=== PATIENT | male | born 1945 | race Caucasian/White ===

== ENCOUNTER 2017-04-01 10:26 | Outpatient (RCR) | payer MEDICARE, OTHER, SELFPAY ==
[2017-04-01 10:51] LABS: Prothrombin Time Fingerstick 27.2 SEC (11.9-14.4)
== END 2017-04-01 10:45 | disposition home or self-care (01) ==
LOC: LAB 10:26
PROVIDERS: Family Provider Family Medicine; PCP Family Medicine; Visit Provider Internal Medicine Cardiovascular Disease
DX: I48.0 Paroxysmal atrial fibrillation (principal); Z79.899 Other long term (current) drug therapy
CPT/HCPCS: 36416; 85610

== ENCOUNTER 2017-04-30 10:30 | Outpatient (RCR) | payer MEDICARE, OTHER, SELFPAY | END 2017-04-30 11:00 | disposition home or self-care (01) | LOC: LAB 10:30 | PROVIDERS: Family Provider Family Medicine; PCP Family Medicine; Visit Provider Internal Medicine Cardiovascular Disease | DX: I48.0 Paroxysmal atrial fibrillation (principal); Z79.899 Other long term (current) drug therapy | CPT/HCPCS: 36416; 85610 ==

== ENCOUNTER 2017-05-28 09:33 | Outpatient (RCR) | payer MEDICARE, OTHER, SELFPAY ==
[2017-05-28 09:46] LABS: Prothrombin Time Fingerstick 26.2 SEC (11.9-14.4)
== END 2017-05-28 10:00 | disposition home or self-care (01) ==
LOC: LAB 09:33
PROVIDERS: Family Provider Family Medicine; PCP Family Medicine; Visit Provider Internal Medicine Cardiovascular Disease
DX: I48.0 Paroxysmal atrial fibrillation (principal); Z79.899 Other long term (current) drug therapy
CPT/HCPCS: 36416; 85610

== ENCOUNTER 2017-06-18 10:02 | Outpatient (RCR) | payer MEDICARE, OTHER, SELFPAY ==
[2017-06-18 10:21] LABS: Prothrombin Time Fingerstick 30.8 SEC (11.9-14.4)
== END 2017-06-18 11:00 | disposition home or self-care (01) ==
LOC: LAB 10:02
PROVIDERS: Family Provider Family Medicine; PCP Family Medicine; Visit Provider Internal Medicine Cardiovascular Disease
DX: I48.0 Paroxysmal atrial fibrillation (principal); Z79.899 Other long term (current) drug therapy
CPT/HCPCS: 36416; 85610

== ENCOUNTER 2017-07-25 09:34 | Outpatient (RCR) | payer MEDICARE, OTHER, SELFPAY ==
[2017-07-25 09:51] LABS: Prothrombin Time Fingerstick 40.1 SEC (11.9-14.4)
== END 2017-07-25 10:00 | disposition home or self-care (01) ==
LOC: LAB 09:34
PROVIDERS: Family Provider Family Medicine; PCP Family Medicine; Visit Provider Internal Medicine Cardiovascular Disease
DX: I48.0 Paroxysmal atrial fibrillation (principal); Z79.899 Other long term (current) drug therapy
CPT/HCPCS: 36416; 85610

== ENCOUNTER 2017-08-08 13:49 | Outpatient (RCR) | payer MEDICARE, OTHER, SELFPAY ==
--- NOTE | 2017-08-08 13:49 | DT_ITS ---
This patient was seen during an EMR downtime August 05, 2017 - August 12, 2017. This patient may have a combination of paper and electronic documentation or all paper documentation. All documentation is viewable within the e-chart portion of [email or web address] for each patient visit.
[2017-08-11 20:06] LABS: Prothrombin Time Fingerstick 30.5 SEC (11.9-14.4)
== END 2017-08-08 14:00 | disposition home or self-care (01) ==
LOC: LAB 13:49
PROVIDERS: Family Provider Family Medicine; PCP Family Medicine; Visit Provider Internal Medicine Cardiovascular Disease
DX: I48.0 Paroxysmal atrial fibrillation (principal); Z79.899 Other long term (current) drug therapy
CPT/HCPCS: 36416; 85610

== ENCOUNTER 2017-09-05 10:17 | Outpatient (RCR) | payer MEDICARE, OTHER, SELFPAY ==
[2017-09-05 10:31] LABS: Prothrombin Time Fingerstick 27.6 SEC (11.9-14.4)
== END 2017-09-05 11:00 | disposition home or self-care (01) ==
LOC: LAB 10:17
PROVIDERS: Family Provider Family Medicine; PCP Family Medicine; Visit Provider Internal Medicine Cardiovascular Disease
DX: I48.0 Paroxysmal atrial fibrillation (principal); Z79.899 Other long term (current) drug therapy
CPT/HCPCS: 36416; 85610

== ENCOUNTER 2017-10-07 10:53 | Outpatient (RCR) | payer MEDICARE, OTHER, SELFPAY ==
[2017-10-07 11:06] LABS: Prothrombin Time Fingerstick 28.1 SEC (11.9-14.4)
== END 2017-10-07 12:00 | disposition home or self-care (01) ==
LOC: LAB 10:53
PROVIDERS: Family Provider Family Medicine; PCP Family Medicine; Visit Provider Internal Medicine Cardiovascular Disease
DX: I48.0 Paroxysmal atrial fibrillation (principal); Z79.899 Other long term (current) drug therapy
CPT/HCPCS: 36416; 85610

== ENCOUNTER 2017-11-08 12:20 | Outpatient (RCR) | payer MEDICARE, OTHER, SELFPAY ==
[2017-11-08 12:37] LABS: Prothrombin Time Fingerstick 34.9 SEC (11.9-14.4)
== END 2017-11-08 14:00 | disposition home or self-care (01) ==
LOC: LAB 12:20
PROVIDERS: Family Provider Family Medicine; PCP Family Medicine; Visit Provider Internal Medicine Cardiovascular Disease
DX: I48.0 Paroxysmal atrial fibrillation (principal); Z79.899 Other long term (current) drug therapy
CPT/HCPCS: 36416; 85610

== ENCOUNTER 2017-12-09 09:21 | Outpatient (RCR) | payer MEDICARE, OTHER, SELFPAY ==
[2017-12-09 09:36] LABS: Prothrombin Time Fingerstick 34.8 SEC (11.9-14.4)
== END 2017-12-09 11:00 | disposition home or self-care (01) ==
LOC: LAB 09:21
PROVIDERS: Family Provider Family Medicine; PCP Family Medicine; Referring Provider Internal Medicine Cardiovascular Disease; Visit Provider Internal Medicine Cardiovascular Disease
DX: I48.0 Paroxysmal atrial fibrillation (principal); R09.89 Other specified symptoms and signs involving the circulatory and respiratory systems; I35.0 Nonrheumatic aortic (valve) stenosis; I35.9 Nonrheumatic aortic valve disorder, unspecified; I10 Essential (primary) hypertension; E78.5 Hyperlipidemia, unspecified; Z79.01 Long term (current) use of anticoagulants
CPT/HCPCS: 36416; 85610

== ENCOUNTER 2018-01-06 08:38 | Outpatient (RCR) | payer MEDICARE, OTHER, SELFPAY ==
[2018-01-06 08:51] LABS: Prothrombin Time Fingerstick 34.2 SEC (11.9-14.4)
== END 2018-01-31 10:29 | disposition home or self-care (01) ==
LOC: LAB 08:38
PROVIDERS: Family Provider Family Medicine; PCP Family Medicine; Referring Provider Internal Medicine Cardiovascular Disease; Visit Provider Internal Medicine Cardiovascular Disease
DX: I48.0 Paroxysmal atrial fibrillation (principal); R09.89 Other specified symptoms and signs involving the circulatory and respiratory systems; I35.0 Nonrheumatic aortic (valve) stenosis; I35.9 Nonrheumatic aortic valve disorder, unspecified; I10 Essential (primary) hypertension; E78.5 Hyperlipidemia, unspecified; Z79.01 Long term (current) use of anticoagulants
CPT/HCPCS: 36416; 85610

== ENCOUNTER 2018-02-04 09:02 | Outpatient (RCR) | payer MEDICARE, OTHER, SELFPAY ==
[2018-02-04 09:15] LABS: Prothrombin Time Fingerstick 33.9 SEC (11.9-14.4)
== END 2018-02-04 09:30 | disposition home or self-care (01) ==
LOC: LAB 09:02
PROVIDERS: Family Provider Family Medicine; PCP Family Medicine; Referring Provider Internal Medicine Cardiovascular Disease; Visit Provider Internal Medicine Cardiovascular Disease
DX: I48.0 Paroxysmal atrial fibrillation (principal); R09.89 Other specified symptoms and signs involving the circulatory and respiratory systems; I35.0 Nonrheumatic aortic (valve) stenosis; I35.9 Nonrheumatic aortic valve disorder, unspecified; I10 Essential (primary) hypertension; E78.5 Hyperlipidemia, unspecified; Z79.01 Long term (current) use of anticoagulants
CPT/HCPCS: 36416; 85610

== ENCOUNTER 2018-03-14 11:23 | Outpatient (RCR) | payer MEDICARE, OTHER, SELFPAY ==
[2018-03-14 11:45] LABS: Prothrombin Time Fingerstick 25.5 SEC (11.9-14.4)
== END 2018-03-14 12:23 | disposition home or self-care (01) ==
LOC: LAB 11:23
PROVIDERS: Family Provider Family Medicine; PCP Family Medicine; Referring Provider Internal Medicine Cardiovascular Disease; Visit Provider Internal Medicine Cardiovascular Disease
DX: I48.0 Paroxysmal atrial fibrillation (principal); R09.89 Other specified symptoms and signs involving the circulatory and respiratory systems; I35.0 Nonrheumatic aortic (valve) stenosis; I35.9 Nonrheumatic aortic valve disorder, unspecified; I10 Essential (primary) hypertension; E78.5 Hyperlipidemia, unspecified; Z79.01 Long term (current) use of anticoagulants
CPT/HCPCS: 36416; 85610

== ENCOUNTER 2018-04-28 13:02 | Outpatient (RCR) | payer MEDICARE, OTHER, SELFPAY ==
[2018-04-18 10:31] LABS: Prothrombin Time Fingerstick 43.6 SEC (11.9-14.4)
[2018-04-18 11:03] LABS: International Normalized Ratio 3.6
[2018-04-18 11:19] LABS: Prothrombin Time (Protime)PT. 35.8 SECONDS (11.7-14.9)
[2018-04-28 13:16] LABS: Prothrombin Time Fingerstick 28.7 SEC (11.9-14.4)
== END 2018-05-01 13:55 | disposition home or self-care (01) ==
LOC: LAB 13:02
PROVIDERS: Family Provider Family Medicine; PCP Family Medicine; Referring Provider Internal Medicine Cardiovascular Disease; Visit Provider Internal Medicine Cardiovascular Disease
DX: I48.0 Paroxysmal atrial fibrillation (principal); R09.89 Other specified symptoms and signs involving the circulatory and respiratory systems; I35.0 Nonrheumatic aortic (valve) stenosis; I35.9 Nonrheumatic aortic valve disorder, unspecified; I10 Essential (primary) hypertension; E78.5 Hyperlipidemia, unspecified; Z79.01 Long term (current) use of anticoagulants
CPT/HCPCS: 36415; 36416; 85610

== ENCOUNTER 2018-05-21 10:47 | Outpatient (RCR) | payer MEDICARE, OTHER, SELFPAY ==
[2018-05-21 11:00] LABS: Prothrombin Time Fingerstick 26.5 SEC (11.9-14.4)
== END 2018-05-21 11:00 | disposition home or self-care (01) ==
LOC: LAB 10:47
PROVIDERS: Family Provider Family Medicine; PCP Family Medicine; Referring Provider Internal Medicine Cardiovascular Disease; Visit Provider Internal Medicine Cardiovascular Disease
DX: I48.0 Paroxysmal atrial fibrillation (principal); R09.89 Other specified symptoms and signs involving the circulatory and respiratory systems; I35.0 Nonrheumatic aortic (valve) stenosis; I35.9 Nonrheumatic aortic valve disorder, unspecified; I10 Essential (primary) hypertension; E78.5 Hyperlipidemia, unspecified; Z79.01 Long term (current) use of anticoagulants
CPT/HCPCS: 36416; 85610

== ENCOUNTER 2018-06-27 12:17 | Outpatient (RCR) | payer MEDICARE, OTHER, SELFPAY ==
[2018-06-27 11:20] VITALS: BMI 28.2
[2018-06-27 12:36] LABS: Prothrombin Time Fingerstick 41.3 SEC (11.9-14.4)
[2018-06-27 13:05] LABS: Prothrombin Time (Protime)PT. 37.8 SECONDS (11.7-14.9)
[2018-06-27 13:11] LABS: International Normalized Ratio 3.8
== END 2018-07-01 16:00 | disposition home or self-care (01) ==
LOC: LAB 12:17
PROVIDERS: Family Provider Family Medicine; PCP Family Medicine; Referring Provider Internal Medicine Cardiovascular Disease; Visit Provider Internal Medicine Cardiovascular Disease
DX: I48.0 Paroxysmal atrial fibrillation (principal); R09.89 Other specified symptoms and signs involving the circulatory and respiratory systems; I35.0 Nonrheumatic aortic (valve) stenosis; I35.9 Nonrheumatic aortic valve disorder, unspecified; I10 Essential (primary) hypertension; E78.5 Hyperlipidemia, unspecified; Z79.01 Long term (current) use of anticoagulants
CPT/HCPCS: 36415; 36416; 85610

== ENCOUNTER 2018-07-18 12:18 | Outpatient (RCR) | payer MEDICARE, OTHER, SELFPAY ==
[2018-07-04 09:25] LABS: Prothrombin Time Fingerstick 21.2 SEC (11.9-14.4)
[2018-07-18 12:56] LABS: Prothrombin Time Fingerstick 28.2 SEC (11.9-14.4)
== END 2018-07-18 13:00 | disposition home or self-care (01) ==
LOC: LAB 12:18
PROVIDERS: Family Provider Family Medicine; PCP Family Medicine; Referring Provider Internal Medicine Cardiovascular Disease; Visit Provider Internal Medicine Cardiovascular Disease
DX: I48.0 Paroxysmal atrial fibrillation (principal); R09.89 Other specified symptoms and signs involving the circulatory and respiratory systems; I35.0 Nonrheumatic aortic (valve) stenosis; I35.9 Nonrheumatic aortic valve disorder, unspecified; I10 Essential (primary) hypertension; E78.5 Hyperlipidemia, unspecified; Z79.01 Long term (current) use of anticoagulants
CPT/HCPCS: 36416; 85610

== ENCOUNTER 2018-08-27 12:35 | Outpatient (RCR) | payer MEDICARE, OTHER, SELFPAY ==
[2018-08-11 10:41] LABS: Prothrombin Time Fingerstick 35.7 SEC (11.9-14.4)
[2018-08-27 12:50] LABS: Prothrombin Time Fingerstick 33.1 SEC (11.9-14.4)
== END 2018-08-27 13:00 | disposition home or self-care (01) ==
LOC: LAB 12:35
PROVIDERS: Family Provider Family Medicine; PCP Family Medicine; Referring Provider Internal Medicine Cardiovascular Disease; Visit Provider Internal Medicine Cardiovascular Disease
DX: I48.0 Paroxysmal atrial fibrillation (principal); R09.89 Other specified symptoms and signs involving the circulatory and respiratory systems; I35.0 Nonrheumatic aortic (valve) stenosis; I35.9 Nonrheumatic aortic valve disorder, unspecified; I10 Essential (primary) hypertension; E78.5 Hyperlipidemia, unspecified; Z79.01 Long term (current) use of anticoagulants
CPT/HCPCS: 36416; 85610

== ENCOUNTER 2018-09-29 09:04 | Outpatient (RCR) | payer MEDICARE, OTHER, SELFPAY ==
[2018-09-29 09:21] LABS: Prothrombin Time Fingerstick 27.8 SEC (11.9-14.4)
== END 2018-09-29 10:00 | disposition home or self-care (01) ==
LOC: LAB 09:04
PROVIDERS: Family Provider Family Medicine; PCP Family Medicine; Referring Provider Internal Medicine Cardiovascular Disease; Visit Provider Internal Medicine Cardiovascular Disease
DX: I48.0 Paroxysmal atrial fibrillation (principal); R09.89 Other specified symptoms and signs involving the circulatory and respiratory systems; I35.0 Nonrheumatic aortic (valve) stenosis; I35.9 Nonrheumatic aortic valve disorder, unspecified; I10 Essential (primary) hypertension; E78.5 Hyperlipidemia, unspecified; Z79.01 Long term (current) use of anticoagulants
CPT/HCPCS: 36416; 85610

== ENCOUNTER 2018-10-27 09:06 | Outpatient (RCR) | payer MEDICARE, OTHER, SELFPAY ==
[2018-10-28 11:18] LABS: Prothrombin Time Fingerstick 27.1 SEC (11.9-14.4)
== END 2018-10-27 10:00 | disposition home or self-care (01) ==
LOC: LAB 09:06
PROVIDERS: Family Provider Family Medicine; PCP Family Medicine; Referring Provider Internal Medicine Cardiovascular Disease; Visit Provider Internal Medicine Cardiovascular Disease
DX: I35.0 Nonrheumatic aortic (valve) stenosis (principal); R09.89 Other specified symptoms and signs involving the circulatory and respiratory systems; I35.9 Nonrheumatic aortic valve disorder, unspecified; I10 Essential (primary) hypertension; E78.5 Hyperlipidemia, unspecified; I48.0 Paroxysmal atrial fibrillation; Z79.01 Long term (current) use of anticoagulants
CPT/HCPCS: 36416; 85610

== ENCOUNTER 2018-12-02 11:51 | Outpatient (RCR) | payer MEDICARE, OTHER, SELFPAY ==
[2018-12-02 15:35] LABS: Prothrombin Time Fingerstick 33.6 SEC (11.9-14.4)
== END 2018-12-02 18:00 | disposition home or self-care (01) ==
LOC: LAB 11:51
PROVIDERS: Family Provider Family Medicine; PCP Family Medicine; Referring Provider Internal Medicine Cardiovascular Disease; Visit Provider Internal Medicine Cardiovascular Disease
DX: I48.0 Paroxysmal atrial fibrillation (principal); Z79.01 Long term (current) use of anticoagulants
CPT/HCPCS: 36416; 85610

== ENCOUNTER 2019-01-06 12:43 | Outpatient (RCR) | payer MEDICARE, OTHER, SELFPAY ==
[2019-01-06 14:21] LABS: Prothrombin Time Fingerstick 26.1 SEC (11.9-14.4)
== END 2019-01-06 18:00 | disposition home or self-care (01) ==
LOC: LAB 12:43
PROVIDERS: Family Provider Family Medicine; PCP Family Medicine; Referring Provider Internal Medicine Cardiovascular Disease; Visit Provider Internal Medicine Cardiovascular Disease
DX: I48.0 Paroxysmal atrial fibrillation (principal); Z79.01 Long term (current) use of anticoagulants
CPT/HCPCS: 36416; 85610

== ENCOUNTER 2019-02-12 11:52 | Outpatient (RCR) | payer MEDICARE, OTHER, SELFPAY ==
[2019-02-12 15:18] LABS: Prothrombin Time Fingerstick 27.5 SEC (11.9-14.4)
[2019-02-12 17:20] LABS: Prothrombin Time Fingerstick 27.5 SEC (11.9-14.4)
== END 2019-02-12 18:00 | disposition home or self-care (01) ==
LOC: LAB 11:52
PROVIDERS: Family Provider Family Medicine; PCP Family Medicine; Referring Provider Internal Medicine Cardiovascular Disease; Visit Provider Internal Medicine Cardiovascular Disease
DX: I48.0 Paroxysmal atrial fibrillation (principal); Z79.01 Long term (current) use of anticoagulants
CPT/HCPCS: 36416; 85610

== ENCOUNTER 2019-03-20 12:35 | Outpatient (RCR) | payer MEDICARE, OTHER, SELFPAY ==
[2019-03-20 12:50] LABS: Prothrombin Time Fingerstick 30.9 SEC (11.9-14.4)
== END 2019-03-20 18:00 | disposition home or self-care (01) ==
LOC: LAB 12:35
PROVIDERS: Family Provider Family Medicine; PCP Family Medicine; Referring Provider Internal Medicine Cardiovascular Disease; Visit Provider Internal Medicine Cardiovascular Disease
DX: I48.0 Paroxysmal atrial fibrillation (principal); Z79.01 Long term (current) use of anticoagulants
CPT/HCPCS: 36416; 85610

== ENCOUNTER 2019-04-23 12:17 | Outpatient (RCR) | payer MEDICARE, SELFPAY ==
[2019-04-09 13:31] LABS: Prothrombin Time Fingerstick 30.4 SEC (11.9-14.4)
[2019-04-23 12:25] LABS: Prothrombin Time Fingerstick 26.2 SEC (11.9-14.4)
== END 2019-04-23 18:00 | disposition home or self-care (01) ==
LOC: LAB 12:17
PROVIDERS: Family Provider Family Medicine; PCP Family Medicine; Referring Provider Internal Medicine Cardiovascular Disease; Visit Provider Internal Medicine Cardiovascular Disease
DX: I48.0 Paroxysmal atrial fibrillation (principal); Z79.01 Long term (current) use of anticoagulants
CPT/HCPCS: 36416; 85610

== ENCOUNTER 2019-05-25 11:25 | Outpatient (RCR) | payer MEDICARE, SELFPAY ==
[2019-05-25 12:00] LABS: Prothrombin Time Fingerstick 31.4 SEC (11.9-14.4)
== END 2019-05-25 18:00 | disposition home or self-care (01) ==
LOC: LAB 11:25
PROVIDERS: Family Provider Family Medicine; PCP Family Medicine; Referring Provider Internal Medicine Cardiovascular Disease; Visit Provider Internal Medicine Cardiovascular Disease
DX: I48.0 Paroxysmal atrial fibrillation (principal); Z79.01 Long term (current) use of anticoagulants
CPT/HCPCS: 36416; 85610

== ENCOUNTER 2019-06-19 13:03 | Outpatient (RCR) | payer MEDICARE, SELFPAY ==
[2019-06-19 13:10] LABS: Prothrombin Time Fingerstick 37.6 SEC (11.9-14.4)
== END 2019-07-02 18:00 | disposition home or self-care (01) ==
LOC: LAB 13:03
PROVIDERS: Family Provider Family Medicine; PCP Family Medicine; Referring Provider Internal Medicine Cardiovascular Disease; Visit Provider Internal Medicine Cardiovascular Disease
DX: I48.0 Paroxysmal atrial fibrillation (principal); Z79.01 Long term (current) use of anticoagulants
CPT/HCPCS: 36416; 85610

== ENCOUNTER 2019-07-06 10:38 | Outpatient (RCR) | payer MEDICARE, SELFPAY ==
[2019-07-06 10:46] LABS: Prothrombin Time Fingerstick 26.9 SEC (11.9-14.4)
== END 2019-07-06 18:00 | disposition home or self-care (01) ==
LOC: LAB 10:38
PROVIDERS: Family Provider Family Medicine; PCP Family Medicine; Referring Provider Internal Medicine Cardiovascular Disease; Visit Provider Internal Medicine Cardiovascular Disease
DX: I48.0 Paroxysmal atrial fibrillation (principal); Z79.01 Long term (current) use of anticoagulants
CPT/HCPCS: 36416; 85610

== ENCOUNTER 2019-08-03 09:30 | Outpatient (RCR) | payer MEDICARE, SELFPAY ==
[2019-08-03 09:45] LABS: Prothrombin Time Fingerstick 26.5 SEC (11.9-14.4)
== END 2019-08-03 18:00 | disposition home or self-care (01) ==
LOC: LAB 09:30
PROVIDERS: Family Provider Family Medicine; PCP Family Medicine; Referring Provider Internal Medicine Cardiovascular Disease; Visit Provider Internal Medicine Cardiovascular Disease
DX: I48.0 Paroxysmal atrial fibrillation (principal); Z79.01 Long term (current) use of anticoagulants
CPT/HCPCS: 36416; 85610

== ENCOUNTER 2019-09-07 10:40 | Outpatient (RCR) | payer MEDICARE, SELFPAY ==
[2019-09-07 10:56] LABS: Prothrombin Time Fingerstick 29.2 SEC (11.9-14.4)
== END 2019-09-07 18:00 | disposition home or self-care (01) ==
LOC: LAB 10:40
PROVIDERS: Family Provider Family Medicine; PCP Family Medicine; Referring Provider Internal Medicine Cardiovascular Disease; Visit Provider Internal Medicine Cardiovascular Disease
DX: I48.0 Paroxysmal atrial fibrillation (principal); Z79.01 Long term (current) use of anticoagulants
CPT/HCPCS: 36416; 85610

== ENCOUNTER 2019-10-05 10:23 | Outpatient (RCR) | payer MEDICARE, SELFPAY | END 2019-11-02 18:00 | disposition home or self-care (01) | LOC: LAB 10:23 | PROVIDERS: Family Provider Family Medicine; PCP Family Medicine; Referring Provider Internal Medicine Cardiovascular Disease; Visit Provider Internal Medicine Cardiovascular Disease | DX: I48.0 Paroxysmal atrial fibrillation (principal); Z79.01 Long term (current) use of anticoagulants | CPT/HCPCS: 36416; 85610 ==

== ENCOUNTER 2019-11-05 10:40 | Outpatient (RCR) | payer MEDICARE, SELFPAY ==
[2019-11-05 10:51] LABS: Prothrombin Time Fingerstick 32.7 SEC (11.9-14.4)
== END 2019-11-05 18:00 | disposition home or self-care (01) ==
LOC: LAB 10:40
PROVIDERS: Family Provider Family Medicine; PCP Family Medicine; Referring Provider Internal Medicine Cardiovascular Disease; Visit Provider Internal Medicine Cardiovascular Disease
DX: I48.0 Paroxysmal atrial fibrillation (principal); Z79.01 Long term (current) use of anticoagulants
CPT/HCPCS: 36416; 85610

== ENCOUNTER 2019-12-07 10:34 | Outpatient (RCR) | payer MEDICARE, SELFPAY ==
[2019-12-07 14:05] LABS: Prothrombin Time Fingerstick 31.5 SEC (11.9-14.4)
== END 2019-12-07 18:00 | disposition home or self-care (01) ==
LOC: LAB 10:34
PROVIDERS: Family Provider Family Medicine; PCP Family Medicine; Referring Provider Internal Medicine Cardiovascular Disease; Visit Provider Internal Medicine Cardiovascular Disease
DX: I48.0 Paroxysmal atrial fibrillation (principal); Z79.01 Long term (current) use of anticoagulants
CPT/HCPCS: 36416; 85610

== ENCOUNTER 2020-01-11 10:57 | Outpatient (RCR) | payer MEDICARE, SELFPAY ==
[2020-01-12 10:46] LABS: Prothrombin Time Fingerstick 27.3 SEC (11.9-14.4)
== END 2020-01-11 18:00 | disposition home or self-care (01) ==
LOC: LAB 10:57
PROVIDERS: Family Provider Family Medicine; PCP Family Medicine; Referring Provider Internal Medicine Cardiovascular Disease; Visit Provider Internal Medicine Cardiovascular Disease
DX: I48.0 Paroxysmal atrial fibrillation (principal); Z79.01 Long term (current) use of anticoagulants
CPT/HCPCS: 36416; 85610

== ENCOUNTER 2020-02-04 11:05 | Outpatient (RCR) | payer MEDICARE, SELFPAY ==
[2020-02-07 15:55] LABS: Prothrombin Time Fingerstick 32.2 SEC (11.9-14.4)
== END 2020-02-04 18:00 | disposition home or self-care (01) ==
LOC: LAB 11:05
PROVIDERS: Family Provider Family Medicine; PCP Family Medicine; Referring Provider Internal Medicine Cardiovascular Disease; Visit Provider Internal Medicine Cardiovascular Disease
DX: I48.0 Paroxysmal atrial fibrillation (principal); Z79.01 Long term (current) use of anticoagulants
CPT/HCPCS: 36416; 85610

== ENCOUNTER 2020-03-07 11:56 | Outpatient (RCR) | payer MEDICARE, SELFPAY ==
[2020-03-07 12:11] LABS: Prothrombin Time Fingerstick 29.5 SEC (11.9-14.4)
== END 2020-03-07 18:00 | disposition home or self-care (01) ==
LOC: LAB 11:56
PROVIDERS: Family Provider Family Medicine; PCP Family Medicine; Referring Provider Internal Medicine Cardiovascular Disease; Visit Provider Internal Medicine Cardiovascular Disease
DX: I48.0 Paroxysmal atrial fibrillation (principal); Z79.01 Long term (current) use of anticoagulants
CPT/HCPCS: 36416; 85610

== ENCOUNTER 2020-04-06 09:47 | Outpatient (RCR) | payer MEDICARE, SELFPAY ==
[2020-04-06 10:11] LABS: Prothrombin Time Fingerstick 21.4 SEC (11.9-14.4)
[2020-04-11 10:06] LABS: Prothrombin Time Fingerstick 30.2 SEC (11.9-14.4)
== END 2020-04-06 18:00 ==
LOC: LAB 09:47
PROVIDERS: Family Provider Family Medicine; PCP Family Medicine; Referring Provider Internal Medicine Cardiovascular Disease; Visit Provider Internal Medicine Cardiovascular Disease
DX: I48.0 Paroxysmal atrial fibrillation (principal); Z79.01 Long term (current) use of anticoagulants
CPT/HCPCS: 36416; 85610

== ENCOUNTER 2020-05-02 12:41 | Outpatient (RCR) | payer MEDICARE, SELFPAY ==
[2020-05-02 12:50] LABS: Prothrombin Time Fingerstick 28.8 SEC (11.9-14.4)
== END 2020-05-02 18:00 | disposition home or self-care (01) ==
LOC: LAB 12:41
PROVIDERS: Family Provider Family Medicine; PCP Family Medicine; Referring Provider Internal Medicine Cardiovascular Disease; Visit Provider Internal Medicine Cardiovascular Disease
DX: I48.0 Paroxysmal atrial fibrillation (principal); Z79.01 Long term (current) use of anticoagulants
CPT/HCPCS: 36416; 85610

== ENCOUNTER 2020-06-06 10:48 | Outpatient (RCR) | payer MEDICARE, SELFPAY ==
[2020-06-10 16:11] LABS: INR Fingerstick 2.4; Prothrombin Time Fingerstick 27.2 SEC (11.9-14.4)
== END 2020-06-06 18:00 | disposition home or self-care (01) ==
LOC: LAB 10:48
PROVIDERS: Family Provider Family Medicine; PCP Family Medicine; Referring Provider Internal Medicine Cardiovascular Disease; Visit Provider Internal Medicine Cardiovascular Disease
DX: I48.0 Paroxysmal atrial fibrillation (principal); Z79.01 Long term (current) use of anticoagulants
CPT/HCPCS: 36416; 85610

== ENCOUNTER 2020-07-04 10:10 | Outpatient (RCR) | payer MEDICARE, SELFPAY ==
[2020-07-04 10:31] LABS: INR Fingerstick 2.4; Prothrombin Time Fingerstick 26.7 SEC (11.9-14.4)
== END 2020-07-04 18:00 | disposition home or self-care (01) ==
LOC: LAB 10:10
PROVIDERS: Family Provider Family Medicine; PCP Family Medicine; Referring Provider Internal Medicine Cardiovascular Disease; Visit Provider Internal Medicine Cardiovascular Disease
DX: I48.0 Paroxysmal atrial fibrillation (principal); Z79.01 Long term (current) use of anticoagulants
CPT/HCPCS: 36416; 85610

== ENCOUNTER 2020-08-08 07:30 | Outpatient (RCR) | payer MEDICARE, SELFPAY ==
[2020-08-08 07:41] LABS: INR Fingerstick 2.4; Prothrombin Time Fingerstick 26.8 SEC (11.9-14.4)
== END 2020-08-08 18:00 | disposition home or self-care (01) ==
LOC: LAB 07:30
PROVIDERS: Family Provider Family Medicine; PCP Family Medicine; Referring Provider Internal Medicine Cardiovascular Disease; Visit Provider Internal Medicine Cardiovascular Disease
DX: I48.0 Paroxysmal atrial fibrillation (principal); Z79.01 Long term (current) use of anticoagulants
CPT/HCPCS: 36416; 85610

== ENCOUNTER 2020-09-12 07:30 | Outpatient (RCR) | payer MEDICARE, SELFPAY ==
[2020-09-12 07:46] LABS: INR Fingerstick 2.9; Prothrombin Time Fingerstick 32.2 SEC (11.9-14.4)
== END 2020-09-12 18:00 | disposition home or self-care (01) ==
LOC: LAB 07:30
PROVIDERS: Family Provider Family Medicine; PCP Family Medicine; Referring Provider Internal Medicine Cardiovascular Disease; Visit Provider Internal Medicine Cardiovascular Disease
DX: I48.0 Paroxysmal atrial fibrillation (principal); Z79.01 Long term (current) use of anticoagulants
CPT/HCPCS: 36416; 85610

== ENCOUNTER 2020-10-18 08:48 | Outpatient (RCR) | payer MEDICARE, SELFPAY ==
[2020-10-18 13:26] LABS: INR Fingerstick 2.4; Prothrombin Time Fingerstick 27.1 SEC (11.9-14.4)
== END 2020-10-18 18:00 | disposition home or self-care (01) ==
LOC: LAB 08:48
PROVIDERS: Family Provider Family Medicine; PCP Family Medicine; Referring Provider Internal Medicine Cardiovascular Disease; Visit Provider Internal Medicine Cardiovascular Disease
DX: I48.0 Paroxysmal atrial fibrillation (principal); Z79.01 Long term (current) use of anticoagulants
CPT/HCPCS: 36416; 85610

== ENCOUNTER 2020-11-11 10:15 | Outpatient (RCR) | payer MEDICARE, SELFPAY ==
[2020-11-01 23:20] VITALS: BMI 28.2
[2020-11-11 10:26] LABS: INR Fingerstick 2.9; Prothrombin Time Fingerstick 32.4 SEC (11.9-14.4)
== END 2020-11-11 18:00 | disposition home or self-care (01) ==
LOC: LAB 10:15
PROVIDERS: Family Provider Family Medicine; PCP Family Medicine; Referring Provider Internal Medicine Cardiovascular Disease; Visit Provider Internal Medicine Cardiovascular Disease
DX: I48.0 Paroxysmal atrial fibrillation (principal); Z79.01 Long term (current) use of anticoagulants
CPT/HCPCS: 36416; 85610

== ENCOUNTER → 2020-11-18 14:24 | Outpatient (CLI) | payer MEDICARE, SELFPAY ==
--- NOTE | 2020-11-18 14:26 | CT_ITS ---
STUDY: CT BRAIN WITH AND WITHOUT CONTRAST REASON FOR EXAM: Male, 75 years old. 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 The examination was performed with intravenous administration of IV 100mL Isovue-370. Individualized dose optimization techniques were used for this CT. COMPARISON: None. FINDINGS: Normal soft tissue structures. Normal calvarium. There is mild cerebral atrophy with widening of the extra-axial spaces and ventricular dilatation. There are areas of decreased attenuation within the white matter tracts of the supratentorial brain, consistent with microvascular disease changes. There are small punctate calcifications of the basal ganglia which are seen in the aging brain as a normal variant. Normal brainstem. Normal cerebellum. There is no intracranial hemorrhage. There are no findings of an acute ischemic infarction. Atherosclerotic calcification of the cavernous portions of the internal carotid arteries bilaterally. Normal visualized paranasal sinuses. CT/Brain/Head W/WO Contrast IMPRESSION: Chronic involutional changes of the brain. Electronically Signed: Kyrie Guevara MD at 15:20 EDT , Service support ,
--- NOTE | 2020-11-18 14:27 | CT_ITS ---
STUDY: CT ORBITS WITH CONTRAST REASON FOR EXAM: Male, 75 years old. RT cranial PALSY RADIATION DOSAGE (If Supplied By Facility): CTDIvol = ( 29.38 ) mGy, DLP = ( 305.04 ) mGycm TECHNIQUE: The patient was scanned in a multi detector CT scanner. Transaxial imaging was performed following the intravenous administration of IV 100mL Isovue-370. Sagittal and coronal images were reconstructed. Individualized dose optimization techniques were used for this CT. COMPARISON: None. FINDINGS: Normal globes. Normal intraconal spaces. Normal optic nerve sheath complex. Normal bilateral extraocular muscles. Normal lacrimal glands. Normal bilateral medial and inferior orbital wharton. Normal bilateral maxillary bones. Normal bilateral frontozygomatic arches. Normal bilateral zygomatic temporal arches. Opacification of the right frontal sinus. Partial opacification of the right ethmoid sinus. Normal maxillary sinuses. Mild degree of mucosal thickening along the posterior aspect of the right sphenoid sinus. Normal soft tissue structures. There is no demonstrated abnormal enhancement. CT/Orb Sella Post Fossa Ear W/CON IMPRESSION: Mucosal thickening of the posterior aspect of the right sphenoid sinus as well as partial opacification of the right ethmoid sinus. Opacification of the right frontal sinus. Electronically Signed: Kyrie Guevara MD at 15:22 EDT , Service support ,
[2020-11-18 14:56] LABS: CREATININE FINGERSTICK 0.7 mg/dL (0.70-1.30); EGFR FINGERSTICK > 60.0000 mL/min (>60)
== END ==
PROVIDERS: PCP Family Medicine; Visit Provider Ophthalmology
DX: H49.01 Third [oculomotor] nerve palsy, right eye (principal)
CPT/HCPCS: 70470; 70481; Q9967

== ENCOUNTER 2020-12-19 08:31 | Outpatient (RCR) | payer MEDICARE, SELFPAY ==
[2020-12-01 20:38] VITALS: BMI 28.2
[2020-12-19 11:36] LABS: INR Fingerstick 2.9; Prothrombin Time Fingerstick 32.2 SEC (11.9-14.4)
== END 2021-01-01 03:47 | disposition home or self-care (01) ==
LOC: LAB 08:31
PROVIDERS: Family Provider Family Medicine; PCP Family Medicine; Referring Provider Internal Medicine Cardiovascular Disease; Visit Provider Internal Medicine Cardiovascular Disease
DX: I48.0 Paroxysmal atrial fibrillation (principal); Z79.01 Long term (current) use of anticoagulants
CPT/HCPCS: 36416; 85610

== ENCOUNTER 2021-01-18 10:22 | Outpatient (RCR) | payer MEDICARE, SELFPAY ==
[2021-01-01 03:47] VITALS: BMI 28.2
[2021-01-18 10:30] LABS: INR Fingerstick 2.4; Prothrombin Time Fingerstick 27.1 SEC (11.9-14.4)
== END 2021-01-31 18:00 | disposition home or self-care (01) ==
LOC: LAB 10:22
PROVIDERS: Family Provider Family Medicine; PCP Family Medicine; Referring Provider Internal Medicine Cardiovascular Disease; Visit Provider Internal Medicine Cardiovascular Disease
DX: I48.0 Paroxysmal atrial fibrillation (principal); Z79.01 Long term (current) use of anticoagulants
CPT/HCPCS: 36416; 85610

== ENCOUNTER 2021-02-16 08:44 | Outpatient (RCR) | payer MEDICARE, SELFPAY ==
[2021-02-01 02:25] VITALS: BMI 28.2
[2021-02-16 09:05] LABS: INR Fingerstick 2.7; Prothrombin Time Fingerstick 30.1 SEC (11.9-14.4)
== END 2021-03-04 18:00 | disposition home or self-care (01) ==
LOC: LAB 08:44
PROVIDERS: Family Provider Family Medicine; PCP Family Medicine; Referring Provider Internal Medicine Cardiovascular Disease; Visit Provider Internal Medicine Cardiovascular Disease
DX: I48.0 Paroxysmal atrial fibrillation (principal); Z79.01 Long term (current) use of anticoagulants
CPT/HCPCS: 36416; 85610

== ENCOUNTER 2021-03-21 10:58 | Outpatient (RCR) | payer MEDICARE, SELFPAY ==
[2021-03-05 04:13] VITALS: BMI 28.2
[2021-03-21 11:10] LABS: INR Fingerstick 2.4; Prothrombin Time Fingerstick 27.9 SEC (11.9-14.4)
== END 2021-04-03 18:00 | disposition home or self-care (01) ==
LOC: LAB 10:58
PROVIDERS: Family Provider Family Medicine; PCP Family Medicine; Referring Provider Internal Medicine Cardiovascular Disease; Visit Provider Internal Medicine Cardiovascular Disease
DX: I48.0 Paroxysmal atrial fibrillation (principal); Z79.01 Long term (current) use of anticoagulants
CPT/HCPCS: 36416; 85610

== ENCOUNTER 2021-04-19 09:29 | Outpatient (RCR) | payer MEDICARE, SELFPAY ==
[2021-04-03 23:05] VITALS: BMI 28.2
[2021-04-19 09:41] LABS: INR Fingerstick 2.1; Prothrombin Time Fingerstick 24.6 SEC (11.9-14.4)
== END 2021-04-19 18:00 | disposition home or self-care (01) ==
LOC: LAB 09:29
PROVIDERS: Family Provider Family Medicine; PCP Family Medicine; Referring Provider Internal Medicine Cardiovascular Disease; Visit Provider Internal Medicine Cardiovascular Disease
DX: I48.0 Paroxysmal atrial fibrillation (principal); Z79.01 Long term (current) use of anticoagulants
CPT/HCPCS: 36416; 85610

== ENCOUNTER 2021-05-23 11:22 | Outpatient (RCR) | payer MEDICARE, SELFPAY ==
[2021-05-02 10:29] VITALS: BMI 28.2
[2021-05-23 11:41] LABS: INR Fingerstick 1.9; Prothrombin Time Fingerstick 22.4 SEC (11.7-14.9)
== END 2021-06-01 18:00 | disposition home or self-care (01) ==
LOC: LAB 11:22
PROVIDERS: Family Provider Family Medicine; PCP Family Medicine; Referring Provider Internal Medicine Cardiovascular Disease; Visit Provider Internal Medicine Cardiovascular Disease
DX: I48.0 Paroxysmal atrial fibrillation (principal); Z79.01 Long term (current) use of anticoagulants
CPT/HCPCS: 36416; 85610

== ENCOUNTER 2021-06-20 09:03 | Outpatient (RCR) | payer MEDICARE, SELFPAY ==
[2021-06-02 02:24] VITALS: BMI 28.2
[2021-06-20 09:15] LABS: INR Fingerstick 1.7; Prothrombin Time Fingerstick 20.2 SEC (11.7-14.9)
== END 2021-06-20 18:00 | disposition home or self-care (01) ==
LOC: LAB 09:03
PROVIDERS: Family Provider Family Medicine; PCP Family Medicine; Referring Provider Internal Medicine Cardiovascular Disease; Visit Provider Internal Medicine Cardiovascular Disease
DX: I48.0 Paroxysmal atrial fibrillation (principal); Z79.01 Long term (current) use of anticoagulants
CPT/HCPCS: 36416; 85610

== ENCOUNTER 2021-07-18 10:50 | Outpatient (RCR) | payer MEDICARE, SELFPAY ==
[2021-07-02 03:22] VITALS: BMI 28.2
[2021-07-06 07:36] LABS: INR Fingerstick 1.7
[2021-07-18 10:56] LABS: INR Fingerstick 2.4; Prothrombin Time Fingerstick 28.1 SEC (11.7-14.9)
== END 2021-07-18 18:00 | disposition home or self-care (01) ==
LOC: LAB 10:50
PROVIDERS: Family Provider Family Medicine; PCP Family Medicine; Referring Provider Internal Medicine Cardiovascular Disease; Visit Provider Internal Medicine Cardiovascular Disease
DX: I48.0 Paroxysmal atrial fibrillation (principal); Z79.01 Long term (current) use of anticoagulants
CPT/HCPCS: 36416; 85610

== ENCOUNTER → 2021-07-25 | Outpatient (CLI) | payer MEDICARE, SELFPAY ==
--- NOTE | 2021-07-25 09:49 | CDU_ITS ---
Reason For Study: Carotid bruit, left Rt. Velocities/BP Lt. Velocities/BP Prox CCA 77.3/6.9 cm/sec. Prox CCA 78.6/13.4 cm/sec. Mid CCA 70.8/10.8 cm/sec. Mid CCA 77.3/16 cm/sec. Dist CCA 61.7/10.8 cm/sec. Dist CCA 65.6/14.7 cm/sec. Prox ICA 48.6/13.4 cm/sec. Prox ICA 473.2/143.8 cm/sec. Mid ICA 60.4/13.4 cm/sec. Mid ICA 240.1/23.6 cm/sec. Dist ICA 51.2/13.4 cm/sec. Dist ICA 79/21.2 cm/sec. Rt. ICA/CCA = 0.85. Lt. ICA/CCA = 6.12. Prox ECA 94.3/9.5 cm/sec. Prox ECA 103.4/5.6 cm/sec. Rt. Vert. 57.8/17.3 cm/sec. Lt. Vert. 66.7/18.8 cm/sec. Right Extracranial There is homogeneous, smooth atherosclerotic plaque noted in the right common carotid artery. There is heterogeneous, irregular atherosclerotic plaque noted in the right internal carotid artery. There is intimal thickening but no significant atherosclerotic plaque noted in the right external carotid artery. Antegrade flow is noted in the right vertebral artery. There is heterogeneous, irregular atherosclerotic plaque noted in the right bulb. Left Extracranial There is heterogeneous, irregular atherosclerotic plaque noted in the left common carotid artery. There is heterogeneous, irregular atherosclerotic plaque noted in the left internal carotid artery. There is intimal thickening but no significant atherosclerotic plaque noted in the left external carotid artery. Antegrade flow is noted in the left vertebral artery. There is heterogeneous, irregular atherosclerotic plaque noted in the left bulb. Procedure Carotid Duplex 67812. This is a Carotid Duplex examination using B-mode, color flow and specral Doppler. Preliminary report to Renetta ADRIAN. Exam performed in department. VL/Carotid Duplex Ultrasound Interpretation Summary Irregular calcific plaque with shadowing at the distal right common carotid art osiel and proximal right internal carotid artery with less than 50% stenosis of the internal carot id artery Less than 50% stenosis right external carotid artery Irregular calcific plaque with shadowing at the proximal left internal carotid artery and carotid bulb with near occlusion of the internal carotid artery Less than 50% stenosis left external carotid artery Patent and antegrade vertebral arteries bilaterally Notable progression of left internal carotid artery occlusive disease from the previous examination of December 28, 2016 Ordering Physician: Ashely Donis Referring Physician: Jef Henao Performed By: Sherlyn Peterson RVT
== END | disposition home or self-care (01) ==
PROVIDERS: PCP Family Medicine; Visit Provider Nurse Practitioner Gerontology
DX: R09.89 Other specified symptoms and signs involving the circulatory and respiratory systems (principal)
CPT/HCPCS: 93880

== ENCOUNTER → 2021-08-02 | Outpatient (CLI) | payer MEDICARE, SELFPAY ==
--- NOTE | 2021-08-02 10:00 | CT_ITS ---
STUDY: CTA NECK WITH CONTRAST REASON FOR EXAM: Male, 76 years old. Left carotid stenosis. RADIATION DOSAGE (If Supplied By Facility): CTDIvol = ( 23.49 ) mGy, DLP = ( 637.85 ) mGycm TECHNIQUE: CT angiography with multi-detector data acquisition was performed from the aortic arch to the skull base following intravenous administration of IV 100mL Isovue-370. MIP images were reconstructed from the axial data set. Post-processing of the angiographic images was performed, with multiplanar reformation and 3D reconstruction. Individualized dose optimization techniques were used for this CT. COMPARISON: None. FINDINGS: AORTIC ARCH: There is atherosclerotic calcific plaque formation of the aortic arch and great vessels arising from the aortic arch, without a hemodynamically significant stenosis. There is a normal origin of the brachiocephalic, left common carotid, and left subclavian arteries. Atherosclerotic calcific plaque seen at the origin of the left subclavian artery as well as the origin of the right brachiocephalic artery. RIGHT CAROTID ARTERIES: Normal right common carotid artery (CCA). Normal right common carotid bulb. There is extensive atherosclerotic plaque formation of the origin of the right internal carotid artery with an estimated stenosis of greater than 70%. Normal visualized cervical portion of the right internal carotid artery. Normal origin of the right external carotid artery (ECA). LEFT CAROTID ARTERIES: There is atherosclerotic plaque formation of the common carotid artery, but without a hemodynamically significant stenosis. Normal left common carotid bulb. There is severe atherosclerotic plaque formation of the origin of the left internal carotid artery with a near complete occlusion. Normal visualized cervical portion of the left internal carotid artery. Normal origin of the left external carotid artery (ECA). VERTEBRAL ARTERIES: Normal bilateral vertebral arteries. CT/CTA Neck W/WO Contrast IMPRESSION: There is bilateral high-grade stenosis at the origins of the left and right internal carotid arteries more prominent on the left side. Electronically Signed: Kyrie Guevara MD at 10:45 EDT ,
[2021-08-02 10:10] LABS: CREATININE FINGERSTICK < 0.9 mg/dL (0.70-1.30); EGFR FINGERSTICK > 60.0000 mL/min (>60)
== END | disposition home or self-care (01) ==
LOC: CT 09:51
PROVIDERS: PCP Family Medicine; Visit Provider Physician Assistant
DX: I65.22 Occlusion and stenosis of left carotid artery (principal)
CPT/HCPCS: 70498; Q9967; A4216

== ENCOUNTER 2021-08-14 05:17 | Inpatient (IN) | payer MEDICARE, SELFPAY ==
[2021-08-08 16:00] LABS: Hemoglobin 13.2 g/dL (13.0-16.5); Mean Corp Hgb Conc 35.7 g/dL (32-36); Mean Corpuscular Hgb 30.6 pg (27.0-32.0); Mean Corpuscular Volume 85.6 fL (80-94); Mean Platelet Vol. 8.9 fl (6.2-12.0); Platelet Count 162 K/mm3 (150-450); RBC Distribution Width CV 11.8 % (11.6-14.6); RBC Distribution Width SD 36.8 fl (35.1-43.9); Red Blood Count 4.32 M/mm3 (4.6-6.2)
[2021-08-08 16:17] LABS: Anion Gap 8 (5-15); BUN 20 mg/dL (7-18); BUN/Creat Ratio 17.1 RATIO (10-20); Calcium,Total 9.5 mg/dL (8.5-10.1); Chloride 94 mmol/L (98-107); Creatinine, Serum 1.17 mg/dL (0.70-1.30); EST Glomerular Filtration Rate 65 mL/min (>60); Est Glom Filt Rate - Afr Amer 78 mL/min (>60); Glucose 253 mg/dL (74-106); Potassium 4.3 mmol/L (3.5-5.1); Sodium Level 129 mmol/L (136-145)
[2021-08-08 16:30] LABS: International Normalized Ratio 2.4; Prothrombin Time (Protime)PT. 26.2 SECONDS (11.7-14.9)
[2021-08-09 12:38] LABS: Hemoglobin A1c 6.7 % (3.8-5.6)
--- NOTE | 2021-08-10 13:12 | EKG12_ITS ---
Test Reason : Blood Pressure : / mmHG Vent. Rate : 067 BPM Atrial Rate : 067 BPM P-R Int : 212 ms QRS Dur : 108 ms QT Int : 402 ms P-R-T Axes : 078 065 065 degrees QTc Int : 424 ms Sinus rhythm with 1st degree A-V block Otherwise normal ECG Confirmed by SEAN ZEPEDA, ELEANOR ([id number]), acquisitions editor AIDAN FIORE ([id number]) on 08/14/2021 7:20:53 AM Referred By: Naren Espinoza Confirmed By:ELEANOR ESTRADA MD
--- NOTE | 2021-08-12 | PLAQ_PTH ---
PATIENT: SHEYLA JOSHUA LOC: MS3 U#:[id number] AGE/SX: 76/M [place] [facility] [place]: Dr. Naren Espinoza MD : 1945 BED: 1 DIS: 08/15/2021 SPEC #: [id number] RECD: 08/14/21 09:16 STATUS: ANGELA SOLORIO #: [id number] KRISTI: 08/12/21 00:[address]: Naren Espinoza DEPT: SURGICAL PATHOLOGY RECD BY: Jer Garcia ENTERED: 08/14/21 09:53 SP TYPE: PLAQUE OTHR DR: Dr. Jef Henao MD Tissues: PLAQUE Procedures: Decalcification bone/plaque Surgery Specimen Level III HEADER OPERATION: Carotid endarterectomy with patch angioplasty PRE-OP DIAGNOSIS: Stenosis of left carotid artery TISSUE SUBMITTED: Left carotid plaque MICROSCOPIC DIAGNOSIS Left carotid plaque, endarterectomy: Atherosclerotic tissue with focal calcifications (plaque). SJ:niraj 08/17/2021 GROSS DESCRIPTION Received in fixative is one container labeled with the patient's name and designated left carotid plaque. The specimen consists of a partially disrupted tubular piece of nguyen, indurated tissue measuring 3.8 cm in length and up to 1 cm in diameter. A detached piece of yellow, indurated tissue is also noted measuring 0.7 x 0.7 x 0.2 cm. The specimen cuts with gritty sensation. Cook Jelly sections are submitted in one cassette after decalcification. / YASMINE:nriaj 08/14/2021 TC:5 CPT: 27788, 72326
[2021-08-14] VITALS (22 sets, daily range): BP systolic 111–172; BP diastolic 41–87; PULSE 58–76; RESP 16–18; TEMP 36.2–37.5; O2SAT 94–99; BMI 27.5; BMI 28.0; BMI 28.1
--- NOTE | 2021-08-14 05:54 | PCM.HP.BLA ---
History and Physical Date of Admission: 08/14/21 Chief Complaint: carotid stenosis Tsa Screener Required: No Accompanied by: Daughter Is patient in pain?: No Allergies No Known Allergies Allergy (Verified 08/02/21 08:55) Medications flecainide 150 mg tablet 150 mg PO BID 90 Days #180 tab 06/14/17 [History Confirmed 08/08/21] metformin 1,000 mg tablet 1,000 mg PO BID 90 Days #180 tab 06/14/17 [History Confirmed 08/08/21] allopurinol 100 mg tablet 100 mg PO QDAY 06/18/17 [History Confirmed 08/08/21] amlodipine 10 mg tablet 10 mg PO QDAY 06/18/17 [History Confirmed 08/08/21] carvedilol 25 mg tablet 12.5 mg PO BID tab 06/18/17 [History Confirmed 08/08/21] polypodium leucotomos extract 240 mg capsule See Rx Instructions PO .COMPLEX 06/18/17 [History Confirmed 08/08/21] atorvastatin 80 mg tablet 40 mg PO QHS tab 06/27/18 [History Confirmed 08/08/21] vitamin B complex 1 tab PO DAILY 06/27/18 [History Confirmed 08/08/21] warfarin 2 mg tablet 2 mg PO .COMPLEX #180 tab 04/06/20 [Rx Confirmed 08/08/21] warfarin 5 mg tablet 5 mg PO QDAY #90 tab 10/17/20 [Rx Confirmed 08/08/21] warfarin 3 mg tablet 3 mg PO .COMPLEX #90 tab 12/26/20 [Rx Confirmed 08/08/21] cholecalciferol (vitamin D3) 25 mcg (1,000 unit) capsule 25 mcg PO DAILY 05/26/21 [History Confirmed 08/08/21] insulin glargine 100 unit/mL subcutaneous solution 22 unit SC QDAY ml 05/26/21 [History Confirmed 08/08/21] hydrochlorothiazide 25 mg tablet 25 mg PO DAILY 07/10/21 [History Confirmed 08/08/21] losartan 100 mg tablet 100 mg PO DAILY #90 tab 07/10/21 [Rx Confirmed 08/08/21] aspirin 81 mg tablet,delayed release 81 mg PO DAILY 08/08/21 [History Confirmed 08/08/21] [facility] Medical History (Updated 08/08/21 @ 15:[address] Naren Espinoza MD) Diabetes mellitus Essential (primary) hypertension HLD (hyperlipidemia) Left carotid bruit Non-rheumatic aortic stenosis Paroxysmal atrial fibrillation Surgical History History of tonsillectomy Family History Father CVA (cerebral vascular accident) Diabetes Mother Myocardial infarction CVA (cerebral vascular accident) Brother Myocardial infarction Diabetes Hypertension Brother Diabetes Hypertension Cardiac defibrillator in place Brother CAD (coronary artery disease) Brother CAD (coronary artery disease) cardiac stent Diabetes Afib Social History Smoking Status: Former smoker substance use type: does not use seatbelt use: always HPI HPI HPI: SHEYLA JOSHUA, is a 76 M who presents to the office today for ongoing discussion regarding extracranial carotid artery occlusive disease. I have recently seen this patient on August 02, 2021. On the same day the patient has CTA of the carotids suggesting high-grade stenosis bilateral internal carotids left more severe than the right. In detail I have reviewed with the patient today his carotid duplex and CT findings. Please refer to my documentation below August 02, 2021 STUDY: CTA NECK WITH CONTRAST REASON FOR EXAM: Male, 76 years old. Left carotid stenosis. RADIATION DOSAGE (If Supplied By Facility): CTDIvol = ( 23.49 ) mGy, DLP = ( 637.85 ) mGycm TECHNIQUE: CT angiography with multi-detector data acquisition was performed from the aortic arch to the skull base following intravenous administration of IV 100mL Isovue-370. MIP images were reconstructed from the axial data set. Post-processing of the angiographic images was performed, with multiplanar reformation and 3D reconstruction. Individualized dose optimization techniques were used for this CT. COMPARISON: None. FINDINGS: AORTIC ARCH: There is atherosclerotic calcific plaque formation of the aortic arch and great vessels arising from the aortic arch, without a hemodynamically significant stenosis. There is a normal origin of the brachiocephalic, left common carotid, and left subclavian arteries. Atherosclerotic calcific plaque seen at the origin of the left subclavian artery as well as the origin of the right brachiocephalic artery. RIGHT CAROTID ARTERIES: Normal right common carotid artery (CCA). Normal right common carotid bulb. There is extensive atherosclerotic plaque formation of the origin of the right internal carotid artery with an estimated stenosis of greater than 70%. Normal visualized cervical portion of the right internal carotid artery. Normal origin of the right external carotid artery (ECA). LEFT CAROTID ARTERIES: There is atherosclerotic plaque formation of the common carotid artery, but without a hemodynamically significant stenosis. Normal left common carotid bulb. There is severe atherosclerotic plaque formation of the origin of the left internal carotid artery with a near complete occlusion. Normal visualized cervical portion of the left internal carotid artery. Normal origin of the left external carotid artery (ECA). VERTEBRAL ARTERIES: Normal bilateral vertebral arteries. CT/CTA Neck W/WO Contrast IMPRESSION: There is bilateral high-grade stenosis at the origins of the left and right internal carotid arteries more prominent on the left side. Electronically Signed: Kyrie Guevara MD at 10:45 EDT , Intake Visit Reasons: critical carotid Chief Complaint: carotid stenosis Tsa Screener Required: No Is patient in pain?: No Allergies No Known Allergies Allergy (Verified 08/02/21 08:55) Medications flecainide 150 mg tablet 150 mg PO BID 90 Days #180 tab 06/14/17 [History Confirmed 08/02/21] metformin 1,000 mg tablet 1,000 mg PO BID 90 Days #180 tab 06/14/17 [History Confirmed 08/02/21] allopurinol 100 mg tablet 100 mg PO QDAY 06/18/17 [History Confirmed 08/02/21] amlodipine 10 mg tablet 10 mg PO QDAY 06/18/17 [History Confirmed 08/02/21] carvedilol 25 mg tablet 12.5 mg PO BID tab 06/18/17 [History Confirmed 08/02/21] polypodium leucotomos extract 240 mg capsule See Rx Instructions PO .COMPLEX 04/17/18 [History Confirmed 08/02/21] atorvastatin 80 mg tablet 40 mg PO QHS tab 06/27/18 [History Confirmed 08/02/21] vitamin B complex 1 tab PO DAILY 06/27/18 [History Confirmed 08/02/21] warfarin 2 mg tablet 2 mg PO .COMPLEX #180 tab 04/06/20 [Rx Confirmed 08/02/21] warfarin 5 mg tablet 5 mg PO QDAY #90 tab 10/17/20 [Rx Confirmed 08/02/21] warfarin 3 mg tablet 3 mg PO .COMPLEX #90 tab 12/26/20 [Rx Confirmed 08/02/21] cholecalciferol (vitamin D3) 25 mcg (1,000 unit) capsule 25 mcg PO DAILY 05/26/21 [History Confirmed 08/02/21] insulin glargine 100 unit/mL subcutaneous solution 22 unit SC QDAY ml 05/26/21 [History Confirmed 08/02/21] hydrochlorothiazide 25 mg tablet 25 mg PO DAILY 07/10/21 [History Confirmed 08/02/21] losartan 100 mg tablet 100 mg PO DAILY #90 tab 07/10/21 [Rx Confirmed 08/02/21] [facility] Medical History (Updated 08/02/21 @ 09:[address] Naren Espinoza MD) Diabetes mellitus Essential (primary) hypertension HLD (hyperlipidemia) Left carotid bruit Non-rheumatic aortic stenosis Paroxysmal atrial fibrillation Surgical History History of tonsillectomy Family History Father CVA (cerebral vascular accident) Diabetes Mother Myocardial infarction CVA (cerebral vascular accident) Brother Myocardial infarction Diabetes Hypertension Brother Diabetes Hypertension Cardiac defibrillator in place Brother CAD (coronary artery disease) Brother CAD (coronary artery disease) cardiac stent Diabetes Afib Social History Smoking Status: Former smoker substance use type: does not use seatbelt use: always HPI HPI HPI: SHEYLA JOSHUA, is a 76 M who presents to the office today for surgical consultation regarding abnormal carotid findings. The patient was seen by the [facility] Ashely Donis NP-C on May 26, 2021. Details: SHEYLA JOSHUA, is a 76 M who presents to the office today for a follow-up visit, and cardiac clearance for a colonoscopy. He has a history of aortic stenosis, hypertension, diabetes, hyperlipidemia, and paroxysmal atrial fibrillation with a cardioversion in January 2009. The patient was scheduled proceed with a colonoscopy at the [facility]. Patient has paroxysmal atrial fibrillation and was instructed that he could hold his Coumadin for 5 days precolonoscopy. He has a history of nonrheumatic aortic valvular stenosis. History of a left carotid bruit. On January 01, 2017 carotid duplex suggested less than 50% stenosis of the right internal carotid artery and 50 to 69% stenosis of the left internal carotid artery. Does have some dizziness particularly when getting up. He denies any previous history of myocardial infarction or stroke. There is a family history of multiple members who have had strokes. The patient's primary care physician is Dr. Jef Henao and his ergonomist is Dr. Barber Sofia and his [facility] physician is Dr. Estrella. The patient has been a long-term diabetic. Typical a.m. blood sugars at 9200. He thinks his previous hemoglobin A1c was 6.4. He has chronic atrial fibrillation and has been on Coumadin for multiple years. It is of note that he just recently had a colonoscopy done at the [facility]. He states that he made it through that procedure well out medical difficulty and that 4 polyps were removed at that time. We do have cardiology review and case recommendations are to proceed with surgical treatment. July 25, 2021 Reason For Study: Carotid bruit, left Rt. Velocities/BP Lt. Velocities/BP Prox CCA 77.3/6.9 cm/sec. Prox CCA 78.6/13.4 cm/sec. Mid CCA 70.8/10.8 cm/sec. Mid CCA 77.3/16 cm/sec. Dist CCA 61.7/10.8 cm/sec. Dist CCA 65.6/14.7 cm/sec. Prox ICA 48.6/13.4 cm/sec. Prox ICA 473.2/143.8 cm/sec. Mid ICA 60.4/13.4 cm/sec. Mid ICA 240.1/23.6 cm/sec. Dist ICA 51.2/13.4 cm/sec. Dist ICA 79/21.2 cm/sec. Rt. ICA/CCA = 0.85. Lt. ICA/CCA = 6.12. Prox ECA 94.3/9.5 cm/sec. Prox ECA 103.4/5.6 cm/sec. Rt. Vert. 57.8/17.3 cm/sec. Lt. Vert. 66.7/18.8 cm/sec. Right Extracranial There is homogeneous, smooth atherosclerotic plaque noted in the right common carotid artery. There is heterogeneous, irregular atherosclerotic plaque noted in the right internal carotid artery. There is intimal thickening but no significant atherosclerotic plaque noted in the right external carotid artery. Antegrade flow is noted in the right vertebral artery. There is heterogeneous, irregular atherosclerotic plaque noted in the right bulb. Left Extracranial There is heterogeneous, irregular atherosclerotic plaque noted in the left common carotid artery. There is heterogeneous, irregular atherosclerotic plaque noted in the left internal carotid artery. There is intimal thickening but no significant atherosclerotic plaque noted in the left external carotid artery. Antegrade flow is noted in the left vertebral artery. There is heterogeneous, irregular atherosclerotic plaque noted in the left bulb. Procedure Carotid Duplex 61857. This is a Carotid Duplex examination using B-mode, color flow and specral Doppler. Preliminary report to Renetta ADRIAN. Exam performed in department. VL/Carotid Duplex Ultrasound Interpretation Summary Irregular calcific plaque with shadowing at the distal right common carotid artery and proximal right internal carotid artery with less than 50% stenosis of the internal carotid artery Less than 50% stenosis right external carotid artery Irregular calcific plaque with shadowing at the proximal left internal carotid artery and carotid bulb with near occlusion of the internal carotid artery Less than 50% stenosis left external carotid artery Patent and antegrade vertebral arteries bilaterally Notable progression of left internal carotid artery occlusive disease from the previous examination of December 28, 2016 Ordering Physician: Ashely Donis Referring Physician: Jef Henao Performed By: Sherlyn Peterson RVT 07/25/21 [id number] Naren Espinoza MD ROS General General: Yes fatigue; No weight change, appetite, colon cancer, breast cancer or weakness HEENT HEENT: No difficulty swallowing, eye injury, eye surgery, swollen glands or hoarseness Endo Endocrine: Yes diabetes mellitus; No thyroid disease, thyroid cancer, Hair loss, heat intolerance or cold intolerance Skin Skin: No rash or changing moles Breast Breast: No left breast lump, right breast lump, nipple discharge, breast pain, abnormal mammogram, abnormal US or breast enlargement Musc Musculoskeletal: Yes arthritis and gout; No back problems, rheumatoid arthritis or joint pain Cardio Cardiovascular: Yes atrial fibrillation and high blood pressure; No murmur, pacemaker, heart disease, heart attack, heart stent, palpitations, shortness of breat with exertion or chest pain Psych Psychiatric: No depression, anxiety or hearing voices Resp Respiratory: No shortness of breath, No sleep apnea, No cough, No COPD, No asthma, No emphysema and No wheezing Gastro Gastrointestinal: No abdominal pain, No nausea or vomiting, No diarrhea, No constipation, No blood in stool, No acid reflux, Yes hemorrhoids, No ulcers, No gallbladder problem and No black,tarry stools Daniel Hematologic: Yes blood thinners, No blood disorders, No bleeding, No anemia and No blood clots Neuro Neurologic: No system reviewed and no additional complaints, except as documented, No as per HPI, No abnormal gait, No abnormal hearing, No abnormal movements, No abnormal speech, No behavioral changes, No burning sensations, No confusion, No convulsions, No disequilibrium, No dizziness, No localized weakness, No frequent falls, No headache(s), No lack of coordination, No loss of vision, No memory loss, Yes numbness, No other visual disturbances, No radicular pain, No restless legs, No sensory deficit, No syncope, Yes tingling, No tremor(s), No weakness and No other Exam Const General: cooperative, healthy appearing, comfortable and no acute distress Nutritional Appearance: average body habitus Orientation: awake [facility] Head: normal to inspection Eyes General: appearance normal, both eyes and all related structures Neck Other: Slightly diminished range of motion slightly more stiff and kyphotic. Carotids are easily palpable 2-3+. 2/6 carotid bruits bilaterally Chest Chest palpation & inspection: normal inspection of the chest Resp Effort & Inspection: normal respiratory effort Auscultation: clear to auscultation bilaterally Cardio Rate: regular rate Rhythm: regular rhythm Other: 2/6 systolic ejection murmur GI Palpation: soft and no hepatosplenomegaly Auscultation: normal bowel sounds Other: Not expansile or pulsatile Musc Cervical Spine: normal cervical lordosis Skin General: no rashes or lesions noted Neuro General: patient alert, patient awake and patient oriented x3 Extrem General: no calf tenderness Other: 2+ bilateral extremity pitting edema Psych Appearance: grossly normal Assessment and Plan Assessment and Plan (1) Stenosis of left carotid artery: Status: Acute (2) Paroxysmal atrial fibrillation: Status: Chronic (3) long term (current) use of anticoagulants: Status: Chronic (4) Diabetes mellitus: Status: Chronic Qualifiers: Diabetes mellitus type: type 2 Orders: Orders: CTA Neck W/WO Contrast Today I65.22 Plan - Dr. Naren Espinoza MD: 76-year-old gentleman. He has had significant progression of left carotid stenosis since the previous examination of 2017. He is currently asymptomatic although he does have some orthostatic dizziness. He has hyperlipidemia and he is diabetic he has a very remote history of cigarette smoking but quit in his early 20s. He has a strong family history of stroke. He was on low-dose aspirin up until about a year ago when he dropped that off. He has been on warfarin for an extended period of time. I recommend to him a CTA of the carotids to confirm the carotid duplex imaging. I have discussed with him surgical recommendations. I have compared and contrasted the benefit, risk, alternatives to left carotid endarterectomy with bovine patch angioplasty with arterial line monitoring in deference to left carotid artery stenting. He has had an opportunity to ask and have questions answered. He is densely calcified upon the duplex imaging. He appears to be very tightly stenotic. I believe that he would be a good candidate for a left carotid endarterectomy with patch angioplasty and arterial line. We will have him hold his warfarin for 2 days preprocedure. I have asked him to would reinitiate 81 mg aspirin today and we would have him continue that up till surgery and postoperatively. He has had an opportunity to ask and have questions answered. He would like his daughter to have an opportunity to be present at another appointment. I assured him that subsequent to the CTA we would typically have an additional appointment scheduled to discuss those findings as well. His daughter works at [employer]. We will try to expedite his investigation care and management. I appreciate the opportunity of assisting with the surgical care. Copy: Dr. Jef Henao and Dr. Barber Sofia and Dr. Sameer Jon [place] Naren Espinoza M.D., F.A.C.S. Assessment and Plan Assessment and Plan (1) Carotid stenosis, bilateral: Status: Acute Plan - Dr. Naren Espinoza MD: Comparing the patient's carotid duplex imaging and CTA of the carotids I believe confirms a high-grade stenosis of his left internal carotid artery. I do not believe that he has high-grade stenosis of the right internal carotid as the duplex does not demonstrate a high flow jet and there is calcification at the proximal right internal carotid artery likely leading to an over estimation of the degree of stenosis. In significant detail I described to the patient arterial line monitoring and a left carotid endarterectomy with bovine patch angioplasty with intraoperative shunting. I have described the technique, benefit, risk, alternatives. No guarantees of success have been offered. He is aware that there is no 0 risk pathway. I have compared and contrasted this procedure to carotid artery stenting. He has had an opportunity to ask and have questions answered. We will expedite his management. We will obtain laboratory today particularly reviewing his INR. Tentatively at this time anticipate holding his Coumadin for 2 days preprocedure so as to not incur a rebound effect. He will remain on 81 mg aspirin up until the day of surgery. My current plan regarding his right carotid is conservative future follow-up. Copy: Dr. Jef Henao and Dr. Barber Espinoza M.D., F.A.C.S. I have re-examined the patient. There are no clinical changes since date of exam. Naren Espinoza M.D., F.A.C.S.
--- NOTE | 2021-08-14 06:48 | OP.PCM_ITS ---
Problems Associated Problem List Diagnoses (1) Stenosis of left carotid artery: Report of Operation Date of Procedure: 08/14/21 Pre-Operative Diagnosis: Critical stenosis of left extracranial internal carotid artery Post-Operative Diagnosis: Same Surgery/Procedure Performed:: Right radial arterial line placement Left carotid endarterectomy with bovine patch angioplasty Kyara: [id number], lot number [id number], expiry date 11/23/2025, PN #[id number] Description of Surgical Findings:: Timeout and informed consent was obtained. At the bedside Alfonso test was performed demonstrating adequate ulnar flow. The right wrist was gently extended and prepped with Betadine. Under ultrasound guidance 1% lidocaine was used as a local anesthetic. A total of 1 cc was used. Under ultrasound guidance an Arrow kit Angiocath was advanced into the artery and Seldinger wire technique was utilized. The catheter was secured to skin with 3-0 silk and OpSite dressing. Gaurav wrap was applied. Good waveform was obtained. The patient tolerated the procedure well. Minimal blood loss. The hand was viable at the completion. No apparent complication. [The patient was subsequently taken the operating for definitive surgical intervention. It is of note that I did attempt to place a left radial arterial line and gain access to the artery but could not get wire advancement. I aborted that side applied pressure hand was viable at the completion no apparent complication. Dressings were applied. Timeout informed consent was obtained. 76-year-old gentleman was taken to the operating placed on the table underwent general endotracheal intubation esthesia. Ancef 2 g were given intravenously. The left neck was sterilely prepped and draped. An oblique incision made along the anterior border the sternocleidomastoid. Sharp dissection was carried down through the subcutaneous tissue. The platysma was incised. Sternocleidomastoid was reflected laterally. Crossing facial veins were secured with 3-0 Vicryl ligatures. Where needed hemostasis obtained with hemoclips. Sharp and blunt dissection used to identify the common carotid carotid bulb proximal internal and external carotid arteries. A Caban tie of Dacron tape was placed around the common carotid Dacron tape around the internal carotid with a Luke tourniquet and a vessel loop around the external carotid. A Caban tie of 3-0 Vicryl was placed around the superior thyroid artery. The patient then received 10,000's of heparin weightbase. After adequate surgical time peripheral vascular clamps were placed on the internal carotid external carotid and common carotid. An 11 blade was used to make an arteriotomy which was extended with Caban scissors. A #10 USC I style shunt was placed cephalad and proximally. Plaque was extraordinarily calcific. We sharply transected proximally then using a [place] was gently elevated at the layer of the external elastic lamina. Was carefully feathered at the internal carotid artery and then in an inversion endarterectomy of the external carotid artery was performed. The vessel was irrigated further debris was carefully removed a single tacking suture of 7-0 Prolene was placed cephalad. A Vascu-Guard bovine patch then was shaped to form and a patch angioplasty created with a running 6-0 Prolene. Prior to completion the shunt was removed there was good retrograde and antegrade flow. Patch angioplasty completed. Initial flow was instilled from the external carotid common carotid and internal carotid. Single repair sutures 7-0 Prolene was required. Hemostasis was intact. The patient received 30 mg of protamine as reversal agent. The wound was closed in layers with a deep layer running 3-0 Vicryl for the platysma and then a running subicular 5-0 Vicryl. The periincisional area anesthetized with 20 cc of 0.5% Marcaine. Steri-Strips Telfa tape dressings applied. Sponge and instrument and needle counts were reported to the surgeon to be correct. Specimen plaque. Drains none. Blood loss 100 cc. He was taken to the recovery area in satisfactory condition without apparent complication Naren Espinoza M.D., F.A.C.S.] Surgeon: Naren Espinoza Type of Anesthesia: General and Local Anesthesiologist: Ace Cook
--- NOTE | 2021-08-14 06:52 | PCM.DC ---
Discharge Instructions Diet Discharge Diet: Light diet - advance as tolerated Activity Discharge Activity: May Not Drive (For 5 to 7 days), May Not Shower (For 3 days) and May Take a Tub Bath Weight Bearing Status: Full weight bearing Dressing / Incision Call your doctor if your incision/area has: Continuous Slow Oozing, Sudden Increased Bleeding and Increased Pain/ Swelling Call your doctor if you observe: Fever of 101 or Higher Suture Line Care: Avoid Pulling/Pushing Change Dressing in: 1 day (You may apply a dry gauze cover dressing to your incision as needed to protect from clothing irritation. Change as needed) Remove Dressing in: 1 week (Leave your Steri-Strips in place for 1 week then you may remove) Follow Up Care Please Follow Up With: Naren Espinoza MD When: Approximately 10 days. Please call [phone] to arrange for an appointment Test Results: May shower on . Pat the incision dry. At any time you can place a dry gauze dressing over your left neck incision if there are any signs of oozing or need for protection from clothing Discharge Plan Admission Admit Date/Time: 08/14/21 05:17 Primary Reason for Your Visit: Critical stenosis left internal carotid artery Attending Provider: Naren Espinoza Primary Care Provider: Jef Henao Discharge Orders/Prescriptions Prescriptions: Continued amlodipine 10 mg tablet 10 mg PO QDAY RF: 0 carvedilol [Coreg] 25 mg tablet 25 mg PO BID RF: 0 allopurinol 100 mg tablet 100 mg PO QDAY RF: 0 metformin 1,000 mg tablet 1,000 mg PO BID 90 Days Qty: 180 RF: 0 flecainide 150 mg tablet 150 mg PO BID 90 Days Qty: 180 RF: 0 Lantus U-100 Insulin 100 unit/mL solution 22 unit SC QHS RF: 0 atorvastatin 80 mg tablet 40 mg PO QHS RF: 0 vitamin B complex [B Complex-Vitamin B12] tablet 1 tab PO QODAY RF: 0 cholecalciferol (vitamin D3) 25 mcg (1,000 unit) capsule 50 mcg PO DAILY RF: 0 aspirin [Adult Aspirin Regimen] 81 mg tablet,delayed release (DR/EC) 81 mg PO DAILY RF: 0 warfarin 3 mg tablet 3 mg PO .COMPLEX RF: 0 warfarin 2 mg tablet 2 mg PO .COMPLEX RF: 0 warfarin 5 mg tablet 5 mg PO QDAY RF: 0 losartan 100 mg tablet 100 mg PO DAILY RF: 0 hydrochlorothiazide 25 mg tablet 25 mg PO DAILY RF: 0 Other Ambulatory Orders: 12 Lead EKG (Routine) Timeframe: [id number] Location: None Selected Ordered By: Dr. Jhonatan Hawley Referrals / Follow Up: Jef eHnao MD [Primary Care Provider] -
[2021-08-14] MEDS: Heparin Injection (Vial) 5,000 UNIT/ML VIAL 5000 UNIT (07:03)
[2021-08-14] MEDS: Lactated Ringers 1,000 ML 15 ML IV ×2 (07:05→15:01)
[2021-08-14] MEDS: Cefazolin 2 GM in 0.9% Normal Saline 100 ML IV (07:25)
[2021-08-14 08:15] LABS: Bedside Glucose 168 mg/dL (74-106)
[2021-08-14] MEDS: Protamine Sulfate 50 MG/5 ML Vial IV (09:30)
[2021-08-14] MEDS: Bupivacaine Mpf 0.5% 30 ML VIAL (10:02)
[2021-08-14 10:41] LABS: Bedside Glucose 138 mg/dL (74-106)
--- NOTE | 2021-08-14 13:40 | SUR.PHASEI ---
art line removed and pressure held for 5 minutes. no hematoma noted. occlusive dressing applied. patient tolerated well.
[2021-08-14 14:24] LABS: ACT Activated Clotting Time 150 sec (74-137)
[2021-08-14 14:28] LABS: ACT Activated Clotting Time 254 sec (74-137)
[2021-08-14] MEDS: 0.9% Saline Lock 10 ML Syringe IV ×2 (15:01→15:38)
[2021-08-14] MEDS: Cefazolin 1 GM/50 ML BAG IV ×2 (15:01→21:51)
[2021-08-14 15:31] LABS: Bedside Glucose 132 mg/dL (74-106)
--- NOTE | 2021-08-14 16:38 | PCM.PN.SRG ---
Subjective Subjective Patient is doing well. He has no complaints. No nausea. Pain is under control. He has been able to urinate Objective Data Objective Data Vital Signs: Vital Signs Temp Pulse Resp BP Pulse Ox 99.5 F H 74 16 127/74 H 97 08/14/21 13:55 08/14/21 15:44 08/14/21 13:55 08/14/21 13:55 08/14/21 13:55 Oxygen Delivery Method Room Air Weight: 218 lb 8.156 oz Body Mass Index (BMI) 28.0 Intake & Output: Intake and Output for Last 24 Hours 08/12/21 08/13/21 08/14/21 23:59 23:59 23:59 Intake Total 1110 / 1110 Output Total 200 / 200 Balance 910 / 910 Lab / Micro Data Result Diagrams: 08/08/21 15:47 08/08/21 15:47 Labs: Laboratory Results - last 24 hr 08/14/21 06:42: POC Glucose 168 H 08/14/21 06:52: Activated Clotting Time 150 H 08/14/21 09:00: Activated Clotting Time 254 H 08/14/21 10:38: POC Glucose 138 H 08/14/21 15:27: POC Glucose 132 H Physical Exam Narrative Left neck as appropriate amount of soft swelling. No significant drainage. Neurologic exam completely intact Assessment & Plan Assessment/Plan (1) Stenosis of left carotid artery: PLAN: Good progress. We will advance diet. We will mobilize patient. Naren Espinoza M.D., F.A.C.S.
[2021-08-14] MEDS: metFORMIN HCl 1,000 MG Tablet 1000 MG PO (17:08)
[2021-08-14] MEDS: Acetaminophen 325 MG Tablet PO (17:21)
[2021-08-14] MEDS: Atorvastatin Calcium 40 MG Tablet PO (21:47)
[2021-08-14] MEDS: Flecainide 150 MG Tablet PO (21:47)
[2021-08-14] MEDS: Carvedilol 25 MG Tablet PO (21:47)
[2021-08-14] MEDS: Insulin Glargine-YFGN 100 UNIT/ML Pen 22 UNIT SC (21:51)
[2021-08-15] VITALS: PULSE 57
[2021-08-15 01:55] VITALS: BMI 28.1
[2021-08-15 02:45] VITALS: BP 163/79; PULSE 65; RESP 16; TEMP 36.6; O2SAT 95
[2021-08-15 02:56] LABS: Bedside Glucose 140 mg/dL (74-106)
--- NOTE | 2021-08-15 05:50 | PN.SURG_ITS ---
Subjective Subjective Patient continues to do well. He has only been out of bed to go to the bathroom. Has not been up to the chair or ambulating yet. Orders previously provided. He has no specific complaints. He feels that he is intact. Objective Data Objective Data Vital Signs: Vital Signs Temp Pulse Resp BP Pulse Ox 97.9 F 65 16 163/79 H 95 08/15/21 02:45 08/15/21 02:45 08/15/21 02:45 08/15/21 02:45 08/15/21 02:45 Oxygen Delivery Method Room Air Weight: 218 lb 8.156 oz Body Mass Index (BMI) 28.0 Intake & Output: Intake and Output for Last 24 Hours 08/13/21 08/14/21 08/15/21 23:59 23:59 23:59 Intake Total 1610 / 1810 200 / 200 Output Total 200 / 450 250 / 250 Balance 1410 / 1360 -50 / -50 Lab / Micro Data Result Diagrams: 08/08/21 15:47 08/08/21 15:47 Labs: Laboratory Results - last 24 hr 08/14/21 06:42: POC Glucose 168 H 08/14/21 06:52: Activated Clotting Time 150 H 08/14/21 09:00: Activated Clotting Time 254 H 08/14/21 10:38: POC Glucose 138 H 08/14/21 15:27: POC Glucose 132 H 08/14/21 21:45: POC Glucose 140 H Physical Exam Narrative Alert, awake aware of his situation placed, left neck has an appropriate amount of soft swelling, dressing changed incision dry Neuro intact Assessment & Plan Assessment/Plan (1) Stenosis of left carotid artery: PLAN: Patient stable status post left carotid enterectomy. He needs to resume his routine medications including his antihypertensives and anticoagu lants. Office follow-up 10 days anticipated.
[2021-08-15 05:55] VITALS: BMI 28.1
[2021-08-15 07:26] VITALS: PULSE 77
[2021-08-15] MEDS: amLODIPine 10 MG Tablet PO (07:59)
[2021-08-15] MEDS: hydroCHLOROthiazide 25 MG Tablet PO (07:59)
[2021-08-15] MEDS: Carvedilol 25 MG Tablet PO (07:59)
[2021-08-15] MEDS: Aspirin E.C. 81 MG Tablet PO (08:00)
[2021-08-15] MEDS: Losartan Potassium 100 MG Tablet PO (08:00)
[2021-08-15] MEDS: Allopurinol 100 MG Tablet PO (08:00)
[2021-08-15] MEDS: Flecainide 150 MG Tablet PO (08:00)
[2021-08-15] MEDS: metFORMIN HCl 1,000 MG Tablet 1000 MG PO (08:00)
[2021-08-15 08:06] LABS: Bedside Glucose 159 mg/dL (74-106)
[2021-08-15 08:11] VITALS: BP 136/75; PULSE 68; RESP 18; TEMP 36.9; O2SAT 100
[2021-08-15] MEDS: Acetaminophen 325 MG Tablet PO (08:21)
[2021-08-15 09:55] VITALS: BMI 28.1
--- NOTE | 2021-08-15 10:20 | CASEMGMT ---
RN ELIO Face to Face with patient for initial transition planning/care coordination assessment. RN CM introduced self and role at [facility]. Patient lying in bed, alert and oriented, family at bedside. Patient willing to participate in assessment and is able to answer all questions appropriately. Care providers, pharmacy, and demographics verified. Patient wishes to discharge home, denies need for home health at this time. Patient states he has no further needs or concerns at this time. CM to follow for discharge planning needs that may arise. PCP: Juliano Specialists: Alexis, surgeon; Kimberlyn stockroom coordinator Preferred Pharmacy: [facility] Insurance: [facility] Prescription Benefit: yes Living Will/HPOA: yes but needs updated. LNOK: son, daughter Living Arrangements: Patient lives with daughter in a 2 story home with bed and bath on first floor. Patient states he is independent at home. Transportation: self, son, daughter DME/HHC: Patient states he has built in shower chair, raised toilet, cane, walker, and grab bars at home. No previous HHC or SNF Disposition Plan: Patient to discharge home with family support and follow-up plans in place. Sherlyn DAVILA, RN, CM
[2021-08-15 11:21] VITALS: BP 126/61; PULSE 64; RESP 18; TEMP 36.7; O2SAT 94
== END 2021-08-15 12:25 | disposition home or self-care (01) | DRG 38 ==
LOC: ACINP 08:20 → MS3 08-16 08:32
PROVIDERS: Anesthesiology; Admitting Provider Surgery; PCP Family Medicine; Referring Provider Surgery; Visit Provider Surgery
PROC: 03CL0ZZ Extirpation of Matter from Left Internal Carotid Artery, Open Approach (ICD-10-PCS; CPT 35301; principal; 2021-08-14 07:10)
DX: I65.23 Occlusion and stenosis of bilateral carotid arteries (principal); I48.20 Chronic atrial fibrillation, unspecified; E11.9 Type 2 diabetes mellitus without complications; I48.0 Paroxysmal atrial fibrillation; I10 Essential (primary) hypertension; E78.5 Hyperlipidemia, unspecified; I35.0 Nonrheumatic aortic (valve) stenosis; Z79.01 Long term (current) use of anticoagulants; Z79.84 Long term (current) use of oral hypoglycemic drugs; Z87.891 Personal history of nicotine dependence
CPT/HCPCS: 36415; 80048; 82962; 83036; 85027; 85347; 85610; 88304; 88311; 93005; 99251; 99252; J7040; J7120; A4216; G0463; J2405

== ENCOUNTER 2021-08-24 09:45 | Outpatient (RCR) | payer MEDICARE, SELFPAY ==
[2021-08-01 20:43] VITALS: BMI 28.2
[2021-08-24 10:54] LABS: International Normalized Ratio 1.9; Prothrombin Time (Protime)PT. 21.7 SECONDS (11.7-14.9)
[2021-08-24 11:10] LABS: Anion Gap 7 (5-15); BUN 19 mg/dL (7-18); BUN/Creat Ratio 15.7 RATIO (10-20); Calcium,Total 9.3 mg/dL (8.5-10.1); Chloride 96 mmol/L (98-107); Creatinine, Serum 1.21 mg/dL (0.70-1.30); EST Glomerular Filtration Rate 62 mL/min (>60); Est Glom Filt Rate - Afr Amer 75 mL/min (>60); Glucose 192 mg/dL (74-106); Potassium 3.7 mmol/L (3.5-5.1); Sodium Level 130 mmol/L (136-145)
== END 2021-08-24 23:59 | disposition home or self-care (01) ==
LOC: LAB 09:45
PROVIDERS: Nurse Practitioner Family; Family Provider Family Medicine; PCP Family Medicine; Referring Provider Internal Medicine Cardiovascular Disease; Visit Provider Internal Medicine Cardiovascular Disease
DX: I48.0 Paroxysmal atrial fibrillation (principal); Z79.01 Long term (current) use of anticoagulants; I65.22 Occlusion and stenosis of left carotid artery; R42 Dizziness and giddiness
CPT/HCPCS: 36415; 80048; 85610

== ENCOUNTER → 2021-08-24 | Outpatient (CLI) | payer MEDICARE, SELFPAY ==
--- NOTE | 2021-08-24 10:35 | CDU_ITS ---
Reason For Study: dizziness Rt. Velocities/BP Lt. Velocities/BP Prox CCA 72.1/8.2 cm/sec. Prox CCA 119.3/17.0 cm/sec. Mid CCA 68.2/8.2 cm/sec. Mid CCA 112.0/18.8 cm/sec. Dist CCA 63.0/9.5 cm/sec. Dist CCA 121.1/18.8 cm/sec. Prox ICA 47.3/5.6 cm/sec. Prox ICA 94.9/16.3 cm/sec. Mid ICA 64.3/12.1 cm/sec. Mid ICA 106.0/21.2 cm/sec. Dist ICA 54.2/10.2 cm/sec. Dist ICA 91.2/22.5 cm/sec. Rt. ICA/CCA = .9. Lt. ICA/CCA = .9. Prox ECA 111.2/12.6 cm/sec. Prox ECA 83.9/7.7 cm/sec. Rt. Vert. 50.4/12.6 cm/sec. Lt. Vert. 47.6/14.6 cm/sec. Right Extracranial There is homogeneous, smooth atherosclerotic plaque noted in the right common carotid artery. There is heterogeneous, irregular atherosclerotic plaque noted in the right internal carotid artery. There is intimal thickening but no significant atherosclerotic plaque noted in the right external carotid artery. Antegrade flow is noted in the right vertebral artery. Left Extracranial There is heterogeneous, irregular atherosclerotic plaque noted in the left common carotid artery. There is intimal thickening but no significant atherosclerotic plaque noted in the left internal carotid artery. There is intimal thickening but no significant atherosclerotic plaque noted in the left external carotid artery. Antegrade flow is noted in the left vertebral artery. Procedure Carotid Duplex [id number]. This is a Carotid Duplex examination using B-mode, color flow and specral Doppler. The exam was diagnostic. Exam performed in department. VL/Carotid Duplex Ultrasound Interpretation Summary Regular calcific plaque with shadowing at the proximal right internal carotid a rtery with less than 50% stenosis Less than 50% stenosis right external carotid artery Postoperative change of the left carotid bulb and proximal portion of the inter nal carotid artery with patency noted. Less than 50% stenosis left internal carotid artery Less than 50% stenosis left external carotid artery Patent and antegrade vertebral arteries bilaterally Ordering Physician: Naren Espinoza Performed By: Aung Bruno RVT
== END | disposition home or self-care (01) ==
LOC: CVS 10:33
PROVIDERS: PCP Family Medicine; Referring Provider Surgery; Visit Provider Surgery
DX: I65.22 Occlusion and stenosis of left carotid artery (principal); R42 Dizziness and giddiness
CPT/HCPCS: 36415; 80048; 85610; 93880

== ENCOUNTER 2021-09-28 08:33 | Outpatient (RCR) | payer MEDICARE, SELFPAY ==
[2021-09-01 07:02] VITALS: BMI 28.2
[2021-09-07 11:55] LABS: International Normalized Ratio 2.8; Prothrombin Time (Protime)PT. 28.9 SECONDS (11.7-14.9)
[2021-09-07 12:29] LABS: Anion Gap 6 (5-15); BUN 21 mg/dL (7-18); BUN/Creat Ratio 21.2 RATIO (10-20); Calcium,Total 9.7 mg/dL (8.5-10.1); Chloride 98 mmol/L (98-107); Creatinine, Serum 0.99 mg/dL (0.70-1.30); EST Glomerular Filtration Rate 78 mL/min (>60); Est Glom Filt Rate - Afr Amer 95 mL/min (>60); Glucose 177 mg/dL (74-106); Potassium 3.9 mmol/L (3.5-5.1); Sodium Level 134 mmol/L (136-145)
[2021-09-28 08:41] LABS: INR Fingerstick 2.5; Prothrombin Time Fingerstick 29.3 SEC (11.7-14.9)
== END 2021-10-01 02:23 | disposition home or self-care (01) ==
LOC: LAB 08:33
PROVIDERS: Nurse Practitioner Family; Family Provider Family Medicine; PCP Family Medicine; Referring Provider Internal Medicine Cardiovascular Disease; Visit Provider Internal Medicine Cardiovascular Disease
DX: I48.0 Paroxysmal atrial fibrillation (principal); Z79.01 Long term (current) use of anticoagulants; I65.22 Occlusion and stenosis of left carotid artery; R42 Dizziness and giddiness
CPT/HCPCS: 36415; 36416; 80048; 85610

== ENCOUNTER 2021-11-27 09:32 | Outpatient (RCR) | payer MEDICARE, SELFPAY ==
[2021-10-01 02:23] VITALS: BMI 28.2
[2021-11-14 13:36] LABS: INR Fingerstick 3.2; Prothrombin Time Fingerstick 36.1 SEC (11.7-14.9)
[2021-11-27 09:41] LABS: INR Fingerstick 2.6; Prothrombin Time Fingerstick 30.1 SEC (11.7-14.9)
== END 2021-11-27 18:00 | disposition home or self-care (01) ==
LOC: LAB 09:32
PROVIDERS: Family Provider Family Medicine; PCP Family Medicine; Referring Provider Internal Medicine Cardiovascular Disease; Visit Provider Internal Medicine Cardiovascular Disease
DX: I48.0 Paroxysmal atrial fibrillation (principal); Z79.01 Long term (current) use of anticoagulants
CPT/HCPCS: 36416; 85610

== ENCOUNTER 2021-12-22 10:38 | Outpatient (RCR) | payer MEDICARE, SELFPAY ==
[2021-12-01 21:33] VITALS: BMI 28.2
[2021-12-22 10:50] LABS: INR Fingerstick 2.6; Prothrombin Time Fingerstick 30.3 SEC (11.7-14.9)
== END 2021-12-22 18:00 | disposition home or self-care (01) ==
LOC: LAB 10:38
PROVIDERS: Family Provider Family Medicine; PCP Family Medicine; Referring Provider Internal Medicine Cardiovascular Disease; Visit Provider Internal Medicine Cardiovascular Disease
DX: I48.0 Paroxysmal atrial fibrillation (principal); Z79.01 Long term (current) use of anticoagulants
CPT/HCPCS: 36416; 85610

== ENCOUNTER 2022-01-18 09:36 | Outpatient (RCR) | payer MEDICARE, SELFPAY ==
[2022-01-02 10:13] VITALS: BMI 28.2
[2022-01-18 09:45] LABS: INR Fingerstick 2.6; Prothrombin Time Fingerstick 29.6 SEC (11.7-14.9)
== END 2022-01-31 18:00 | disposition home or self-care (01) ==
LOC: LAB 09:36
PROVIDERS: Family Provider Family Medicine; PCP Family Medicine; Referring Provider Internal Medicine Cardiovascular Disease; Visit Provider Internal Medicine Cardiovascular Disease
DX: I48.0 Paroxysmal atrial fibrillation (principal); Z79.01 Long term (current) use of anticoagulants
CPT/HCPCS: 36416; 85610

== ENCOUNTER 2022-02-22 10:48 | Outpatient (RCR) | payer MEDICARE, SELFPAY ==
[2022-01-31 23:10] VITALS: BMI 28.2
[2022-02-22 11:00] LABS: INR Fingerstick 2.8; Prothrombin Time Fingerstick 32.4 SEC (11.7-14.9)
== END 2022-02-22 18:00 | disposition home or self-care (01) ==
LOC: LAB 10:48
PROVIDERS: Family Provider Family Medicine; PCP Family Medicine; Referring Provider Internal Medicine Cardiovascular Disease; Visit Provider Internal Medicine Cardiovascular Disease
DX: I48.0 Paroxysmal atrial fibrillation (principal); Z79.01 Long term (current) use of anticoagulants
CPT/HCPCS: 36416; 85610

== ENCOUNTER 2022-03-29 10:07 | Outpatient (RCR) | payer MEDICARE, SELFPAY ==
[2022-03-04 03:50] VITALS: BMI 28.2
[2022-03-29 10:20] LABS: INR Fingerstick 2.8; Prothrombin Time Fingerstick 32.1 SEC (11.7-14.9)
== END 2022-03-29 11:00 | disposition home or self-care (01) ==
LOC: LAB 10:07
PROVIDERS: Family Provider Family Medicine; PCP Family Medicine; Referring Provider Internal Medicine Cardiovascular Disease; Visit Provider Internal Medicine Cardiovascular Disease
DX: I48.0 Paroxysmal atrial fibrillation (principal); Z79.01 Long term (current) use of anticoagulants
CPT/HCPCS: 36416; 85610

== ENCOUNTER 2022-04-24 09:41 | Outpatient (RCR) | payer MEDICARE, SELFPAY ==
[2022-04-04 08:16] VITALS: BMI 28.2
[2022-04-24 09:50] LABS: INR Fingerstick 2.6
== END 2022-04-24 18:00 | disposition home or self-care (01) ==
LOC: LAB 09:41
PROVIDERS: Family Provider Family Medicine; PCP Family Medicine; Referring Provider Internal Medicine Cardiovascular Disease; Visit Provider Internal Medicine Cardiovascular Disease
DX: I48.0 Paroxysmal atrial fibrillation (principal); Z79.01 Long term (current) use of anticoagulants
CPT/HCPCS: 36416; 85610

== ENCOUNTER 2022-05-21 08:54 | Outpatient (RCR) | payer MEDICARE, SELFPAY ==
[2022-05-01 22:29] VITALS: BMI 28.2
[2022-05-21 09:15] LABS: INR Fingerstick 3.2; Prothrombin Time Fingerstick 34.1 SEC (11.7-14.9)
== END 2022-06-01 23:00 | disposition home or self-care (01) ==
LOC: LAB 08:54
PROVIDERS: Family Provider Family Medicine; PCP Family Medicine; Referring Provider Internal Medicine Cardiovascular Disease; Visit Provider Internal Medicine Cardiovascular Disease
DX: I48.0 Paroxysmal atrial fibrillation (principal); Z79.01 Long term (current) use of anticoagulants
CPT/HCPCS: 36416; 85610

== ENCOUNTER 2022-06-18 10:07 | Outpatient (RCR) | payer MEDICARE, SELFPAY ==
[2022-06-02 00:23] VITALS: BMI 28.2
[2022-06-04 10:45] LABS: INR Fingerstick 3.5; Prothrombin Time Fingerstick 37.5 SEC (11.7-14.9)
[2022-06-18 10:16] LABS: INR Fingerstick 2.6; Prothrombin Time Fingerstick 28.4 SEC (11.7-14.9)
== END 2022-07-01 01:18 | disposition home or self-care (01) ==
LOC: LAB 10:07
PROVIDERS: Family Provider Family Medicine; PCP Family Medicine; Referring Provider Internal Medicine Cardiovascular Disease; Visit Provider Internal Medicine Cardiovascular Disease
DX: I48.0 Paroxysmal atrial fibrillation (principal); Z79.01 Long term (current) use of anticoagulants
CPT/HCPCS: 36416; 85610

== ENCOUNTER 2022-07-16 10:03 | Outpatient (RCR) | payer MEDICARE, SELFPAY ==
[2022-07-01 01:18] VITALS: BMI 28.2
[2022-07-16 10:59] LABS: International Normalized Ratio 2.7; Prothrombin Time (Protime)PT. 29.2 SECONDS (11.7-14.9)
[2022-07-16 11:02] LABS: Anion Gap 9 (5-15); BUN 25 mg/dL (7-18); BUN/Creat Ratio 21.9 RATIO (10-20); Calcium,Total 9.3 mg/dL (8.5-10.1); Chloride 100 mmol/L (98-107); Creatinine, Serum 1.14 mg/dL (0.70-1.30); EST Glomerular Filtration Rate 67 mL/min (>60); Est Glom Filt Rate - Afr Amer 80 mL/min (>60); Glucose 298 mg/dL (74-106); Potassium 4.4 mmol/L (3.5-5.1); Sodium Level 136 mmol/L (136-145)
== END 2022-08-01 18:00 | disposition home or self-care (01) ==
LOC: LAB 10:03
PROVIDERS: Nurse Practitioner Gerontology; Family Provider Family Medicine; PCP Family Medicine; Referring Provider Internal Medicine Cardiovascular Disease; Visit Provider Internal Medicine Cardiovascular Disease
DX: I48.0 Paroxysmal atrial fibrillation (principal); Z79.01 Long term (current) use of anticoagulants
CPT/HCPCS: 36415; 80048; 85610

== ENCOUNTER 2022-08-20 08:22 | Outpatient (RCR) | payer MEDICARE, SELFPAY ==
[2022-08-02 09:36] VITALS: BMI 28.2
[2022-08-20 08:34] LABS: INR Fingerstick 2.2; Prothrombin Time Fingerstick 24.4 SEC (11.7-14.9)
== END 2022-08-20 18:00 | disposition home or self-care (01) ==
LOC: LAB 08:22
PROVIDERS: Family Provider Family Medicine; PCP Family Medicine; Referring Provider Internal Medicine Cardiovascular Disease; Visit Provider Internal Medicine Cardiovascular Disease
DX: I48.0 Paroxysmal atrial fibrillation (principal); Z79.01 Long term (current) use of anticoagulants
CPT/HCPCS: 36416; 85610

== ENCOUNTER → 2022-08-24 | Outpatient (CLI) | payer MEDICARE, SELFPAY ==
--- NOTE | 2022-08-24 09:42 | CDU_ITS ---
Reason For Study: Lt Carotid Stenosis Rt. Velocities/BP Lt. Velocities/BP Prox CCA 89.1/16.3 cm/sec. Prox CCA 108.9/28.5 cm/sec. Mid CCA 73.3/15.7 cm/sec. Mid CCA 85.1/24.8 cm/sec. Dist CCA 64.8/17.6 cm/sec. Dist CCA 89.1/21.6 cm/sec. Prox ICA 57.2/8.1 cm/sec. Prox ICA 75.4/22.6 cm/sec. Mid ICA 53.5/12.8 cm/sec. Mid ICA 119.8/37.6 cm/sec. Dist ICA 42.4/11.8 cm/sec. Dist ICA 94.2/32.1 cm/sec. Rt. ICA/CCA = 0.8. Lt. ICA/CCA = 1.4. Prox ECA 91.0/19.2 cm/sec. Prox ECA 90.4/15.5 cm/sec. Rt. Vert. 53.1/12.5 cm/sec. Lt. Vert. 43.3/12.7 cm/sec. Right Extracranial There is homogeneous, smooth atherosclerotic plaque noted in the right common carotid artery. There is heterogeneous, irregular atherosclerotic plaque noted in the right internal carotid artery. The atherosclerotic plaque causes acoustic shadowing. There is intimal thickening but no significant atherosclerotic plaque noted in the right external carotid artery. Antegrade flow is noted in the right vertebral artery. There is heterogeneous, irregular atherosclerotic plaque noted in the right bulb. Left Extracranial There is heterogeneous, irregular atherosclerotic plaque noted in the left common carotid artery. There is heterogeneous, smooth atherosclerotic plaque noted in the left internal carotid artery. HX Lt CEA. There is intimal thickening but no significant atherosclerotic plaque noted in the left external carotid artery. Antegrade flow is noted in the left vertebral artery. There is heterogeneous, smooth atherosclerotic plaque noted in the left bulb. Procedure Carotid Duplex [id number]. This is a Carotid Duplex examination using B-mode, color flow and specral Doppler. The exam was diagnostic. Exam performed in department. VL/Carotid Duplex Ultrasound Interpretation Summary Irregular calcific plaque with shadowing at the proximal right internal carotid artery with less than 50% stenosis Less than 50% stenosis right external carotid artery Widely patent postoperative changes of the left carotid bulb and proximal inter nal carotid artery with less than 50% stenosis Less than 50% stenosis left external carotid artery Patent antegrade vertebral arteries bilaterally Ordering Physician: Naren Espinoza Referring Physician: Naren Espinoza Performed By: Jason Hicks RVT
== END | disposition home or self-care (01) ==
LOC: CVS 09:39
PROVIDERS: PCP Family Medicine; Referring Provider Surgery; Visit Provider Surgery
DX: I65.22 Occlusion and stenosis of left carotid artery (principal)
CPT/HCPCS: 93880

== ENCOUNTER 2022-09-28 10:36 | Outpatient (RCR) | payer MEDICARE, SELFPAY ==
[2022-08-31 22:17] VITALS: BMI 28.2
[2022-09-28 10:45] LABS: INR Fingerstick 2.2; Prothrombin Time Fingerstick 24.1 SEC (11.7-14.9)
== END 2022-10-01 18:00 | disposition home or self-care (01) ==
LOC: LAB 10:36
PROVIDERS: Family Provider Family Medicine; PCP Family Medicine; Referring Provider Internal Medicine Cardiovascular Disease; Visit Provider Internal Medicine Cardiovascular Disease
DX: I48.0 Paroxysmal atrial fibrillation (principal); Z79.01 Long term (current) use of anticoagulants
CPT/HCPCS: 36416; 85610

== ENCOUNTER 2022-10-26 09:07 | Outpatient (RCR) | payer MEDICARE, SELFPAY ==
[2022-10-02 00:40] VITALS: BMI 28.2
[2022-10-26 09:15] LABS: INR Fingerstick 2.3; Prothrombin Time Fingerstick 25.4 SEC (11.7-14.9)
== END 2022-10-26 18:00 | disposition home or self-care (01) ==
LOC: LAB 09:07
PROVIDERS: Family Provider Family Medicine; PCP Family Medicine; Referring Provider Internal Medicine Cardiovascular Disease; Visit Provider Internal Medicine Cardiovascular Disease
DX: I48.0 Paroxysmal atrial fibrillation (principal); Z79.01 Long term (current) use of anticoagulants
CPT/HCPCS: 36416; 85610

== ENCOUNTER 2022-11-26 08:53 | Outpatient (RCR) | payer MEDICARE, SELFPAY ==
[2022-11-01 22:52] VITALS: BMI 28.2
[2022-11-26 09:00] LABS: INR Fingerstick 2.8; Prothrombin Time Fingerstick 29.9 SEC (11.7-14.9)
== END 2022-11-26 18:00 | disposition home or self-care (01) ==
LOC: LAB 08:53
PROVIDERS: Family Provider Family Medicine; PCP Family Medicine; Referring Provider Internal Medicine Cardiovascular Disease; Visit Provider Internal Medicine Cardiovascular Disease
DX: I48.0 Paroxysmal atrial fibrillation (principal); Z79.01 Long term (current) use of anticoagulants
CPT/HCPCS: 36416; 85610

== ENCOUNTER 2022-12-31 10:03 | Outpatient (RCR) | payer MEDICARE, SELFPAY ==
[2022-12-02 02:42] VITALS: BMI 28.2
[2022-12-31 10:10] LABS: INR Fingerstick 3.8; Prothrombin Time Fingerstick 39.9 SEC (11.7-14.9)
[2022-12-31 10:53] LABS: International Normalized Ratio 3.9; Prothrombin Time (Protime)PT. 38.8 SECONDS (11.7-14.9)
== END 2022-12-31 18:00 | disposition home or self-care (01) ==
LOC: LAB 10:03
PROVIDERS: Family Provider Family Medicine; PCP Family Medicine; Referring Provider Internal Medicine Cardiovascular Disease; Visit Provider Internal Medicine Cardiovascular Disease
DX: I48.0 Paroxysmal atrial fibrillation (principal); Z79.01 Long term (current) use of anticoagulants
CPT/HCPCS: 36415; 36416; 85610

== ENCOUNTER 2023-01-28 08:03 | Outpatient (RCR) | payer MEDICARE, SELFPAY ==
[2023-01-01 22:57] VITALS: BMI 28.2
[2023-01-07 08:37] LABS: INR Fingerstick 2.5; Prothrombin Time Fingerstick 26.8 SEC (11.7-14.9)
[2023-01-14 08:33] LABS: INR Fingerstick 2.1; Prothrombin Time Fingerstick 22.9 SEC (11.7-14.9)
[2023-01-28 08:20] LABS: Prothrombin Time Fingerstick 21.6 SEC (11.7-14.9)
== END 2023-01-31 18:00 | disposition home or self-care (01) ==
LOC: LAB 08:03
PROVIDERS: Family Provider Family Medicine; PCP Family Medicine; Referring Provider Internal Medicine Cardiovascular Disease; Visit Provider Internal Medicine Cardiovascular Disease
DX: I48.0 Paroxysmal atrial fibrillation (principal); Z79.01 Long term (current) use of anticoagulants
CPT/HCPCS: 36416; 85610

== ENCOUNTER → 2023-01-31 | Outpatient (CLI) | payer MEDICARE, SELFPAY ==
--- NOTE | 2023-01-31 18:18 | STRESSREP_ITS ---
Stress Test Report Exercise myocardial perfusion stress test. 78-year-old male with a history of paroxysmal atrial fibrillation on flecainide therapy Stress protocol: Resting EKG demonstrates normal sinus rhythm with a rate of 83 bpm resting blood pressure is 140/78 mmHg. The patient exercised according to the regular Cuco protocol for a total duration of 4 minutes and 31 seconds attaining a maximum heart rate of 127 bpm which was 88% of maximum predicted heart rate; the maximum workload was 7 metabolic equivalents. At rest there were no ST or T wave c hanges noted to suggest ischemia and at peak exercise upsloping ST changes only were noted which did not meet the criteria for ischemia. Occasional premature ventricular complexes were noted. No clinical angina was noted the test was terminated due to the target heart rate being achieved/fatigue. The peak blood pressure was 140/78 mmHg. Rate-pressure product was 13,800. Myocardial perfusion protocol. 14.4 mCi of technetium 99m sestamibi was injected at rest. The patient exercised according to regular Cuco protocol for total duration of 4 minutes and 31 seconds and at peak exercise 44.5 mCi of technetium 99m sestamibi was injected stress images were obtained stress and rest images were reconstructed in comparing the short axis vertical long and horizontal long axis. Gated images were also obtained. Perfusion SPECT analysis: Review of the stress images demonstrate normal uptake of tracer noted in all areas of the myocardium. The resting images similarly demonstrate normal uptake of tracer noted in all areas of the myocardium. No areas of reversibility are noted to suggest ischemia no previous infarct was noted. Gated SPECT analysis: The gated ejection fraction is 58%. Conclusion: Normal exercise myocardial perfusion stress test at a moderate workload Preserved ejection fraction.
== END | disposition home or self-care (01) ==
LOC: CVS 06:14
PROVIDERS: PCP Family Medicine; Referring Provider Nurse Practitioner Gerontology; Visit Provider Nurse Practitioner Gerontology
DX: I48.0 Paroxysmal atrial fibrillation (principal); R06.09 Other forms of dyspnea
CPT/HCPCS: 78452; 93017; A9500; A4216

== ENCOUNTER 2023-02-18 08:59 | Outpatient (RCR) | payer MEDICARE, SELFPAY ==
[2023-02-01 03:20] VITALS: BMI 28.2
[2023-02-18 09:06] LABS: INR Fingerstick 2.7; Prothrombin Time Fingerstick 28.7 SEC (11.7-14.9)
== END 2023-03-03 18:00 | disposition home or self-care (01) ==
LOC: LAB 08:59
PROVIDERS: Family Provider Family Medicine; PCP Family Medicine; Referring Provider Internal Medicine Cardiovascular Disease; Visit Provider Internal Medicine Cardiovascular Disease
DX: I48.0 Paroxysmal atrial fibrillation (principal); Z79.01 Long term (current) use of anticoagulants
CPT/HCPCS: 36416; 85610

== ENCOUNTER 2023-03-19 09:49 | Outpatient (RCR) | payer MEDICARE, SELFPAY ==
[2023-03-03 20:44] VITALS: BMI 28.2
[2023-03-19 10:01] LABS: INR Fingerstick 2.5; Prothrombin Time Fingerstick 26.8 SEC (11.7-14.9)
== END 2023-03-19 18:00 | disposition home or self-care (01) ==
LOC: LAB 09:49
PROVIDERS: Family Provider Family Medicine; PCP Family Medicine; Referring Provider Internal Medicine Cardiovascular Disease; Visit Provider Internal Medicine Cardiovascular Disease
DX: I48.0 Paroxysmal atrial fibrillation (principal); Z79.01 Long term (current) use of anticoagulants
CPT/HCPCS: 36416; 85610

== ENCOUNTER 2023-04-15 09:36 | Outpatient (RCR) | payer MEDICARE, SELFPAY ==
[2023-04-03 22:36] VITALS: BMI 28.2
[2023-04-15 09:43] LABS: Prothrombin Time Fingerstick 21.1 SEC (11.7-14.9)
== END 2023-05-02 18:00 | disposition home or self-care (01) ==
LOC: LAB 09:36
PROVIDERS: Family Provider Family Medicine; PCP Family Medicine; Referring Provider Internal Medicine Cardiovascular Disease; Visit Provider Internal Medicine Cardiovascular Disease
DX: I48.0 Paroxysmal atrial fibrillation (principal); Z79.01 Long term (current) use of anticoagulants
CPT/HCPCS: 36416; 85610

== ENCOUNTER 2023-05-15 10:59 | Outpatient (RCR) | payer MEDICARE, SELFPAY ==
[2023-05-02 22:37] VITALS: BMI 28.2
[2023-05-15 11:10] LABS: INR Fingerstick 1.9; Prothrombin Time Fingerstick 20.1 SEC (11.7-14.9)
== END 2023-06-01 18:00 | disposition home or self-care (01) ==
LOC: LAB 10:59
PROVIDERS: Family Provider Family Medicine; PCP Family Medicine; Referring Provider Internal Medicine Cardiovascular Disease; Visit Provider Internal Medicine Cardiovascular Disease
DX: I48.0 Paroxysmal atrial fibrillation (principal); Z79.01 Long term (current) use of anticoagulants
CPT/HCPCS: 36416; 85610

== ENCOUNTER 2023-06-18 10:00 | Outpatient (RCR) | payer MEDICARE, SELFPAY ==
[2023-06-01 22:31] VITALS: BMI 28.2
[2023-06-18 10:17] LABS: INR Fingerstick 2.7; Prothrombin Time Fingerstick 27.7 SEC (11.7-14.9)
== END 2023-07-02 23:06 | disposition home or self-care (01) ==
LOC: LAB 10:00
PROVIDERS: Family Provider Family Medicine; PCP Family Medicine; Referring Provider Internal Medicine Cardiovascular Disease; Visit Provider Internal Medicine Cardiovascular Disease
DX: I48.0 Paroxysmal atrial fibrillation (principal); Z79.01 Long term (current) use of anticoagulants
CPT/HCPCS: 36416; 85610

== ENCOUNTER 2023-07-17 09:52 | Outpatient (RCR) | payer MEDICARE, SELFPAY ==
[2023-07-02 23:06] VITALS: BMI 28.2
[2023-07-17 10:03] LABS: INR Fingerstick 2.4
== END 2023-07-17 18:00 | disposition home or self-care (01) ==
LOC: LAB 09:52
PROVIDERS: Family Provider Family Medicine; PCP Family Medicine; Referring Provider Internal Medicine Cardiovascular Disease; Visit Provider Internal Medicine Cardiovascular Disease
DX: I48.0 Paroxysmal atrial fibrillation (principal); Z79.01 Long term (current) use of anticoagulants
CPT/HCPCS: 36416; 85610